=== PATIENT | female | born 1990 | race Native Hawaiian/Other Pacific Islander ===

== ENCOUNTER 2021-07-21 19:03 | Emergency (ER) | payer OTHER, SELFPAY ==
[2021-07-21 19:13] VITALS: BP 132/72; PULSE 98; RESP 18; TEMP 36.8; O2SAT 97; BMI 38.2
[2021-07-21] MEDS: SODIUM CHLORIDE 0.9% 1,000 ML 1000 ML IV ×2 (19:35→22:36)
[2021-07-21] MEDS: ONDANSETRON 4 MG/2 ML INJ IV ×2 (19:35→22:37)
[2021-07-21 19:47] LABS: Alanine Aminotransferase 23 IU/L (<35); Albumin 5.1 g/dL (3.5-5.0); Albumin Globulin Ratio 1.5 (1.0-2.8); Alkaline Phosphatase 102 U/L (38-126); Aspartate Aminotransferase 19 IU/L (14-36); BUN Creatinine Ratio 24.5 (6-22); Bilirubin Total 0.7 mg/dL (0.2-1.3); Blood Urea Nitrogen 12 mg/dL (7-17); Calcium 9.5 mg/dL (8.4-10.2); Carbon Dioxide 14 mmol/L (22-32); Chloride 104 mmol/L (98-107); Estimated Glomerular Filt Rate > 60.0 mL/min (>60); Globulin 3.5 g/dL (1.7-4.1); Glucose 183 mg/dL (70-100); HEMOLYSIS < 15 (0-50); Potassium 4.1 mmol/L (3.4-5.1); Sodium 140 mmol/L (137-145); Total Protein 8.6 g/dL (6.3-8.2)
[2021-07-21 22:23] VITALS: BP 113/68; PULSE 100; RESP 18; O2SAT 95
[2021-07-21 23:14] LABS: Bacteria Urine Few (2-10); Culture Indicated Urine Cult Not Indicated; RBC Urine None Seen (0-5/HPF); Squamous Epithelial Cell Urine 1-5 /HPF (0-5/HPF); WBC Urine 0-1/HPF (0-5/HPF)
--- NOTE | 2021-07-22 00:41 | ED.NAVMDI ---
HPI - Nausea/Vomiting/Diarrhea General Chief complaint: Nausea/Vomiting/Diarrhea Stated complaint: vomiting, Type I diabetic Time Seen by Provider: 07/21/21 22:28 Source: patient Mode of arrival: Ambulatory Limitations: no limitations History of Present Illness HPI Narrative: 31-year-old type 1 diabetic who had her 1st injection of Trulicity on Saturday. That evening she developed some nausea and the next 48 hours she continued to have nausea vomiting today. She had 4 episodes of emesis and has not been able to keep food down. She does not describe fevers, cough, diarrhea, abdominal pain no chest pain no palpitations. She does describe some esophageal discomfort with all of the vomiting. She has been doing an excellent job with controlling her blood sugars and has her monitors to demonstrate that she has consistently been in the 120-200 range. Related Data Previous Rx's Medication Instructions Recorded ondansetron HCl 4 mg tablet 4 mg PO Q6H PRN #20 tab 07/22/21 (Zofran) Allergies Allergy/AdvReac Type Severity Reaction Status Date / Time ibuprofen Allergy Severe Hives Verified 07/21/21 19:13 egg Allergy Verified 07/21/21 19:13 Review of Systems Review of Systems Narrative: Remainder of complete review of systems is otherwise unremarkable except for that included in the HPI. Patient History Medical History (Updated 07/22/21 @ 00:54 by Dahiana Garcia MD) Type 1 diabetes Social History Smoking Status: Never smoker Smoking Status: Never smoker Substance Use Type: does not use Exam Narrative Exam Narrative: General: Healthy appearing, mild distress. Able to give a complete and coherent history. Well-nourished well-developed HEENT: Moist mucous membranes, normal sclera with reactive pupils, Respiratory: Lungs are clear to auscultation, no wheezing no rales no rhonchi. Full and symmetrical air movement Cardiac: Regular rate and rhythm no murmurs no bruits Abdomen: Soft, mild diffuse tenderness without rebound or guarding, normal bowel tones. No flank pain. Skin: Warm and dry, no rashes Neurologic: Grossly neurologically intact with no obvious asymmetries or abnormalities Extremities: No trauma, well perfused Psych: Cooperative, appropriate insight and affect Initial Vital Signs Initial Vital Signs: Vital Signs Temperature 98.2 F 07/21/21 19:13 Pulse Rate 98 H 07/21/21 19:13 Respiratory Rate 18 07/21/21 19:13 Blood Pressure 132/72 07/21/21 19:13 Pulse Oximetry 97 07/21/21 19:13 Course Orders Ordered: ED Orders 07/21/21 19:38 CMP [Comprehensive Metabolic Panel] Stat 07/21/21 22:35 Urine Microscopic Stat Discontinued Medications Sodium Chloride (Normal Saline 0.9%) 1,000 mls @ 1,000 mls/hr IV BOLUS ONE Stop: 07/21/21 20:29 Last Infusion: 07/21/21 21:00 Dose: 0 mls/hr Documented by: Admin: 07/21/21 19:35 Dose: 1,000 mls/hr Documented by: CATHY Sodium Chloride (Normal Saline 0.9%) 1,000 mls @ 1,000 mls/hr IV BOLUS ONE Stop: 07/21/21 23:27 Last Infusion: 07/21/21 23:43 Dose: 0 mls/hr Documented by: Admin: 07/21/21 22:36 Dose: 1,000 mls/hr Documented by: CATHY Ondansetron HCl (Ondansetron 4 Mg/2 Ml Inj) 4 mg IV NOW ONE Stop: 07/21/21 19:31 Last Admin: 07/21/21 19:35 Dose: 4 mg Documented by: CATHY Ondansetron HCl (Ondansetron 4 Mg/2 Ml Inj) 4 mg IV NOW ONE Stop: 07/21/21 22:29 Last Admin: 07/21/21 22:37 Dose: 4 mg Documented by: CATHY Vital Signs Vital signs: Vital Signs - 8 hr 07/21/21 19:13 07/21/21 22:23 Temperature 98.2 F Pulse Rate 98 H 100 H Respiratory Rate 18 18 Blood Pressure 132/72 113/68 Pulse Oximetry 97 95 MDM - Nausea/Vomiting/Diarrhea Lab Data Result diagrams: 07/21/21 19:38 Labs: Lab Results 07/21/21 07/21/21 Range/Units 19:38 22:35 Sodium 140 (137-145) mmol/L Potassium 4.1 (3.4-5.1) mmol/L Chloride 104 (98-107) mmol/L Carbon Dioxide 14 L (22-32) mmol/L BUN 12 (7-17) mg/dL Creatinine 0.49 L (0.52-1.04) mg/dL Estimated GFR > 60.0 (>60) mL/min BUN/Creatinine Ratio 24.5 H (6-22) Glucose 183 H (70-100) mg/dL Calcium 9.5 (8.4-10.2) mg/dL Total Bilirubin 0.7 (0.2-1.3) mg/dL AST 19 (14-36) IU/L ALT 23 (<35) IU/L Alkaline Phosphatase 102 (38-126) U/L Total Protein 8.6 H (6.3-8.2) g/dL Albumin 5.1 H (3.5-5.0) g/dL Globulin 3.5 (1.7-4.1) g/dL Albumin/Globulin Ratio 1.5 (1.0-2.8) Urine RBC None seen (0-5/HPF) Urine WBC 0-1/hpf (0-5/HPF) Ur Squamous Epith Cells 1-5 /hpf (0-5/HPF) Urine Bacteria Few (2-10) H (None) Ur Culture Indicated? Cult not indicated Point of Care Testing Test Results Negative Glucose POC 190 Urine Dip Bedside Urine Glucose 500 mg/dl Bedside Urine Bilirubin - Negative Bedside Urine Ketone +++ 80 Urine Specific [place] 1.030 Bedside Urine Occult Blood - Negative Bedside Urine pH 6.0 Bedside Urine Protein + 30 Bedside Urine Urobilinogen - Negative Bedside Urine Nitrite - Negative Bedside Urine Leukocytes - Negative Esterase MDM Narrative Medical decision making narrative: 31-year-old woman who has had significant nausea and vomiting after her 1st Trulicity injection. I suspect that that is the underlying cause of the vomiting. She had a slightly elevated anion gap on arrival and has had 2 L of fluid blood sugars continue to show consistent 150-200 range and the nausea has subsided and she is able to keep fluids and crackers down. I believe she is safe for home discharge and not showing evidence of DKA or infection or other reason for hospitalization today. Discharge Plan Departure Patient Disposition: Home Clinical Impression: Adverse reaction to drug Qualifiers: Encounter type: initial encounter Qualified Code(s): T50.905A - Adverse effect of unspecified drugs, medicaments and biological substances, initial encounter Nausea & vomiting Qualifiers: Vomiting type: unspecified Vomiting Intractability: non-intractable Qualified Code(s): R11.2 - Nausea with vomiting, unspecified Instructions: DI for Nausea -- Adult Activity Restrictions/Additional Instructions: Thank you for coming in tonight You did an excellent job in controlling your blood sugars during this 3 day episode of vomiting. I do think that the nausea is due to the Trulicity and I would recommend that you do not continue this medication I have given you some Zofran to take home and a prescription for this. This is to help with the nausea. I would recommend a simple bland diet for the next day or 2 until your appetite returns If you have worsening symptoms or are unable to eat or drink you do need to return to the ER. Prescriptions: New ondansetron HCl [Zofran] 4 mg tablet 4 mg PO Q6H PRN (Reason: nausea and vomiting) Qty: 20 RF: 0
[2021-07-22] MEDS: ONDANSETRON 4 MG ODT PREPACK 1 BOTTLE MISC (01:00)
[2021-07-22 01:03] VITALS: BP 114/66; PULSE 87; RESP 16; O2SAT 97
== END 2021-07-22 01:08 | disposition home or self-care (01) ==
PROVIDERS: Emergency Provider Emergency Medicine
DX: R11.2 Nausea with vomiting, unspecified (principal); T38.3X5A Adverse effect of insulin and oral hypoglycemic [antidiabetic] drugs, initial encounter
CPT/HCPCS: 80053; 81003; 81015; 81025; 82962; 96361; 96374; 96375; 96376; 99283; 99284; J2405

== ENCOUNTER 2021-07-23 11:54 | Inpatient (IN) | payer OTHER, SELFPAY ==
[2021-07-23] VITALS (30 sets, daily range): BP systolic 116–148; BP diastolic 57–74; PULSE 105–127; RESP 28–38; TEMP 36.4–37.4; O2SAT 97–100; BMI 37.8
[2021-07-23] MEDS: SODIUM CHLORIDE 0.9% 1,000 ML 1000 ML IV ×2 (12:37→13:55)
[2021-07-23] MEDS: ONDANSETRON 4 MG/2 ML INJ IV ×2 (12:37→20:28)
[2021-07-23 12:48] LABS: Add Manual Diff / Slide Review NO; Basophils Absolute Auto 0 /uL (0-100); Basophils Percent Auto 0.1 % (0-2); Eosinophils Absolute Auto 0 /uL (0-450); Hematocrit 50.8 % (36-46); Hemoglobin 16.5 g/dL (12.0-16.0); Lymphocytes Absolute Auto 1300 /uL (1100-4500); Lymphocytes Percent Auto 8.7 % (25-40); Mean Corpuscular HGB Conc 32.5 % (30-36); Mean Corpuscular Hemoglobin 29.4 PG (26-34); Mean Corpuscular Volume 90.6 fL (80-100); Monocytes Absolute Auto 700 /uL (0-900); Monocytes Percent Auto 4.8 % (3-14); Neutrophils Absolute Auto 12600 /uL (1500-7000); Neutrophils Percent Auto 86.4 % (50-75); Platelet Count 479 X10^3/uL (150-400); Red Cell Distribution Width 13.8 % (11.6-14.8); White Blood Cell Count 14.6 X10^3/uL (4.5-11.0)
[2021-07-23 12:59] LABS: Alanine Aminotransferase 22 IU/L (<35); Albumin 5.2 g/dL (3.5-5.0); Albumin Globulin Ratio 1.3 (1.0-2.8); Alkaline Phosphatase 142 U/L (38-126); Aspartate Aminotransferase 16 IU/L (14-36); BUN Creatinine Ratio 14.3 (6-22); Bilirubin Total 0.4 mg/dL (0.2-1.3); Blood Urea Nitrogen 11 mg/dL (7-17); Calcium 9.4 mg/dL (8.4-10.2); Chloride 109 mmol/L (98-107); Estimated Glomerular Filt Rate > 60.0 mL/min (>60); Glucose 391 mg/dL (70-100); HEMOLYSIS < 15 (0-50); Lactate (Lactic Acid) 1.6 mmol/L (0.7-2.1); Potassium 5.1 mmol/L (3.4-5.1); Sodium 140 mmol/L (137-145); Total Protein 9.2 g/dL (6.3-8.2)
[2021-07-23 13:02] LABS: Ketones (Beta-Hydroxybutyrate) 8.38 mmol/L (<0.27)
[2021-07-23 13:06] LABS: Carbon Dioxide < 5 mmol/L (22-32)
--- NOTE | 2021-07-23 13:17 | ED_ITS ---
HPI - Nausea/Vomiting/Diarrhea General Chief complaint: Nausea/Vomiting/Diarrhea Stated complaint: Type 1 Diabetes/dry heaving/not keeping food down Time Seen by Provider: 07/23/21 12:06 Source: patient and family Mode of arrival: Wheelchair Limitations: language barrier History of Present Illness HPI Narrative: 31-year-old female nonsmoker with history of type 1 diabetes presents feeling worse than a few days ago. She had historically been very well managed on her diabetic regimen including long and short-acting insulins. She was just started on Trulicity injection a few days ago and soon thereafter developed nausea and vomiting. She was seen and evaluated here and had a reassuring evaluation with stable labs, she was given fluids and antiemetics and was able to go home. Since then she has continued to vomit and now feels dizzy and weak and has had of increasing shortness of breath. Her sugars been running in the 300s at home. Related Data Previous Rx's Medication Instructions Recorded ondansetron HCl 4 mg tablet 4 mg PO Q6H PRN #20 tab 07/22/21 (Zofran) Allergies Allergy/AdvReac Type Severity Reaction Status Date / Time ibuprofen Allergy Severe Hives Verified 07/21/21 19:13 egg Allergy Verified 07/21/21 19:13 Review of Systems Review of Systems Narrative: GENERAL: See HPI HEENT: Denies sinus pain, ear pain, sore throat, difficulty swallowing, dizziness. RESPIRATORY: See HPI CARDIOVASCULAR: Denies chest pain, palpitations, orthopnea, edema, GASTROINTESTINAL: See HPI : Denies dysuria, frequency, incontinence, hematuria, urinary retention. MUSCULOSKELETAL: denies weakness, joint pain, or bony pain SKIN: Denies rash, skin lesions, or other NEUROLOGIC: Denies weakness, headache, numbness, change in speech, confusion, seizures, incoordination. PSYCHIATRIC: No concerning psychosocial issues. 12 point review of systems is negative except for those stated above Patient History Medical History Type 1 diabetes Social History Smoking Status: Never smoker Smoking Status: Never smoker Substance Use Type: does not use Exam Narrative Exam Narrative: GENERAL: [31 year old patient appears stated age. Well-developed patient, in moderate distress. Obviously ill, rapid shallow breathing, dry mu cous membranes HEAD: Atraumatic. Normocephalic. EYES: Pupils equal round and reactive. Extraocular motions intact. No scleral icterus. No injection or drainage. ENT: Dry mucous membranes Nose without bleeding, purulent drainage. Throat without erythema, tonsillar hypertrophy or exudate. Airway patent. NECK: Trachea midline. Non tender CARDIOVASCULAR: Regular rate and rhythm without murmurs, gallops, or rubs. RESPIRATORY: Clear to auscultation. Breath sounds equal bilaterally. No wheezes, rales, or rhonchi. GASTROINTESTINAL: Abdomen soft, non-tender, nondistended. EXTREMITIES: No edema or joint tenderness. BACK: Nontender without deformity or crepitance. No flank tenderness. NEURO: AOx3. SKIN: No rash or erythema of visible areas Initial Vital Signs Initial Vital Signs: Vital Signs Temperature 97.6 F 07/23/21 12:33 Pulse Rate 123 H 07/23/21 12:33 Respiratory Rate 32 H 07/23/21 12:33 Blood Pressure 116/68 07/23/21 12:33 Pulse Oximetry 97 07/23/21 12:33 Course Orders Ordered: ED Orders 07/23/21 12:08 Venous Blood Gas Stat EKG-12 Lead Stat 07/23/21 12:32 Complete Blood Count AUTO DIFF Stat Comprehensive Metabolic Panel Stat Ketones (Beta-Hydroxybutyrate) Stat Lactate (Lactic Acid) Stat Procalcitonin Stat Troponin I Stat 07/23/21 13:00 Arterial Blood Gas Stat 07/23/21 13:58 COVID19 - ADMIT (SEISMOLOGY TECHNICAL OFFICER swab/PCR) Stat 07/23/21 14:04 XR chest 1V Stat 07/23/21 14:10 Blood Culture Stat Urinalysis and Microscopic Stat Urine Culture Stat 07/24/21 05:00 Hemoglobin A1C% w Est Avg Glu Routine INSULIN DRIP PREMIX (Myxredlin Drip Premix) 100 unit in 100 mls @ 6 mls/hr IV TITRATE CORAZON; Protocol Last Admin: 07/23/21 13:50 Dose: 6 ml/hr, 6 mls/hr Documented by: RAMILA Cosigned by: CSIEDLE Ceftriaxone Sodium 1,000 mg/ (Sodium Chloride) 100 mls @ 200 mls/hr IV DAILY CORAZON Discontinued Medications Sodium Chloride (Normal Saline 0.9%) 1,000 mls @ 1,000 mls/hr IV BOLUS ONE Stop: 07/23/21 13:06 Last Infusion: 07/23/21 13:56 Dose: 0 mls/hr Documented by: Admin: 07/23/21 12:37 Dose: 1,000 mls/hr Documented by: BRANDON Sodium Chloride (Normal Saline 0.9%) 1,000 mls @ 1,000 mls/hr IV BOLUS ONE Stop: 07/23/21 14:45 Last Admin: 07/23/21 13:55 Dose: 1,000 mls/hr Documented by: RAMILA Ceftriaxone Sodium 1,000 mg/ (Sodium Chloride) 100 mls @ 200 mls/hr IV NOW ONE Stop: 07/23/21 14:48 Last Admin: 07/23/21 15:18 Dose: 200 mls/hr Documented by: RAMILA Ondansetron HCl (Ondansetron 4 Mg/2 Ml Inj) 4 mg IV NOW ONE Stop: 07/23/21 12:08 Last Admin: 07/23/21 12:37 Dose: 4 mg Documented by: BRANDON Vital Signs Vital signs: Vital Signs - 8 hr 07/23/21 12:33 07/23/21 13:19 07/23/21 13:30 Temperature 97.6 F Pulse Rate 123 H 109 H 109 H Respiratory Rate 32 H 34 H 34 H Blood Pressure 116/68 140/68 Pulse Oximetry 97 100 100 07/23/21 14:00 07/23/21 14:06 Temperature Pulse Rate 117 H 114 H Respiratory Rate 36 H 31 H Blood Pressure 141/66 H Pulse Oximetry 100 100 MDM - Nausea/Vomiting/Diarrhea Lab Data Result diagrams: 07/23/21 12:32 07/23/21 12:32 Labs: Lab Results 07/23/21 07/23/21 07/23/21 Range/Units 12:32 12:32 12:32 WBC 14.6 H (4.5-11.0) X10^3/uL RBC 5.60 H (4.0-5.2) X10^6/uL Hgb 16.5 H (12.0-16.0) g/dL Hct 50.8 H (36-46) % MCV 90.6 (80-100) fL MCH 29.4 (26-34) PG MCHC 32.5 (30-36) % RDW 13.8 (11.6-14.8) % Plt Count 479 H (150-400) X10^3/uL Neut % (Auto) 86.4 H (50-75) % Lymph % (Auto) 8.7 L (25-40) % [place] % (Auto) 4.8 (3-14) % Eos % (Auto) 0.0 L (2-4) % Baso % (Auto) 0.1 (0-2) % Neut # (Auto) 41331 H (3006-0448) /uL Lymph # (Auto) 1300 (0031-5684) /uL [place] # (Auto) 700 (0-900) /uL Eos # (Auto) 0 (0-450) /uL Baso # (Auto) 0 (0-100) /uL ABG pH (7.35-7.45) ABG pCO2 (35-45) mmHg ABG pO2 (80-100) mmHg ABG HCO3 (22-26) mmol/L ABG Total CO2 (21-31) mmol/L ABG O2 Saturation (95-100) % ABG Base Excess (-2-2) mmol/L FiO2 Sodium 140 (137-145) mmol/L Potassium 5.1 (3.4-5.1) mmol/L Chloride 109 H (98-107) mmol/L Carbon Dioxide < 5 L* (22-32) mmol/L BUN 11 (7-17) mg/dL Creatinine 0.77 (0.52-1.04) mg/dL Estimated GFR > 60.0 (>60) mL/min BUN/Creatinine Ratio 14.3 (6-22) Glucose 391 H D (70-100) mg/dL Lactate 1.6 (0.7-2.1) mmol/L Calcium 9.4 (8.4-10.2) mg/dL Total Bilirubin 0.4 (0.2-1.3) mg/dL AST 16 (14-36) IU/L ALT 22 (<35) IU/L Alkaline Phosphatase 142 H (38-126) U/L Total Protein 9.2 H (6.3-8.2) g/dL Albumin 5.2 H (3.5-5.0) g/dL Globulin 4.0 (1.7-4.1) g/dL Albumin/Globulin Ratio 1.3 (1.0-2.8) Procalcitonin 0.09 (<0.5) ng/mL Urine Color Urine Appearance Urine pH (4.5-8.0) Ur Specific [place] (1.000-1.035) Urine Protein (Negative) Urine Glucose (UA) (Negative) g/dL Urine Ketones (NEGATIVE) Urine Occult Blood (Negative) Urine Nitrate (Negative) Urine Bilirubin (NEGATIVE) Urine Urobilinogen (0.2) E.U./dL Ur Leukocyte Esterase (NEGATIVE) Urine RBC (0-5/HPF) Urine WBC (0-5/HPF) Ur Squamous Epith Cells (0-5/HPF) Urine Bacteria (None) Hyaline Casts (None) Ur Culture Indicated? Ketones 8.38 H (<0.27) mmol/L 07/23/21 07/23/21 Range/Units 13:00 14:10 WBC (4.5-11.0) X10^3/uL RBC (4.0-5.2) X10^6/uL Hgb (12.0-16.0) g/dL Hct (36-46) % MCV (80-100) fL MCH (26-34) PG MCHC (30-36) % RDW (11.6-14.8) % Plt Count (150-400) X10^3/uL Neut % (Auto) (50-75) % Lymph % (Auto) (25-40) % [place] % (Auto) (3-14) % Eos % (Auto) (2-4) % Baso % (Auto) (0-2) % Neut # (Auto) (6462-7312) /uL Lymph # (Auto) (6197-6040) /uL [place] # (Auto) (0-900) /uL Eos # (Auto) (0-450) /uL Baso # (Auto) (0-100) /uL ABG pH 7.04 L* (7.35-7.45) ABG pCO2 9.1 L* (35-45) mmHg ABG pO2 124 H (80-100) mmHg ABG HCO3 3 L (22-26) mmol/L ABG Total CO2 < 5 L (21-31) mmol/L ABG O2 Saturation 97 (95-100) % ABG Base Excess -28.0 L (-2-2) mmol/L FiO2 21 Sodium (137-145) mmol/L Potassium (3.4-5.1) mmol/L Chloride (98-107) mmol/L Carbon Dioxide (22-32) mmol/L BUN (7-17) mg/dL Creatinine (0.52-1.04) mg/dL Estimated GFR (>60) mL/min BUN/Creatinine Ratio (6-22) Glucose (70-100) mg/dL Lactate (0.7-2.1) mmol/L Calcium (8.4-10.2) mg/dL Total Bilirubin (0.2-1.3) mg/dL AST (14-36) IU/L ALT (<35) IU/L Alkaline Phosphatase (38-126) U/L Total Protein (6.3-8.2) g/dL Albumin (3.5-5.0) g/dL Globulin (1.7-4.1) g/dL Albumin/Globulin Ratio (1.0-2.8) Procalcitonin (<0.5) ng/mL Urine Color Yellow Urine Appearance Clear Urine pH 5.0 (4.5-8.0) Ur Specific [place] 1.020 (1.000-1.035) Urine Protein 1+ H (Negative) Urine Glucose (UA) 1+ H (Negative) g/dL Urine Ketones 3+ H (NEGATIVE) Urine Occult Blood 1+ H (Negative) Urine Nitrate Negative (Negative) Urine Bilirubin Negative (NEGATIVE) Urine Urobilinogen 0.2 (0.2) E.U./dL Ur Leukocyte Esterase Negative (NEGATIVE) Urine RBC 0-1/hpf (0-5/HPF) Urine WBC 5-10/hpf H (0-5/HPF) Ur Squamous Epith Cells 0-1 /hpf (0-5/HPF) Urine Bacteria Few (2-10) H (None) Hyaline Casts 5-10/lpf (None) Ur Culture Indicated? Specimen cultured Ketones (<0.27) mmol/L Point of Care Testing Test Results Negative Glucose POC 250 Urine Dip Bedside Urine Glucose 500 mg/dl Bedside Urine Bilirubin - Negative Bedside Urine Ketone +++ 80 Urine Specific [place] 1.030 Bedside Urine Occult Blood + Bedside Urine pH 6.0 Bedside Urine Protein + 30 Bedside Urine Urobilinogen - Negative Bedside Urine Nitrite - Negative Bedside Urine Leukocytes - Negative Esterase Imaging Data Chest x-ray: Radiologist's Impression: Teresa Crump??31??F??1990 ? Allergy/Adv: ibuprofen, egg Close Chest X-Ray (Signed) Kyrie Faulknersse - 07/23/21 Launch?[address] [address] XRay Report Signed Patient: Teresa Crump MR#: [id number] : 1990 Acct:[id number] Age/Sex: 31 / F Date of Service: 07/23/21 Loc: 90D-1 Accession Number: [id number] ?? Procedure: XR chest 1V Ordering Provider: Marlo Sow D.O. PROCEDURE:? XR CHEST 1V ? INDICATIONS:? Short of breath ? TECHNIQUE:? One view of the chest was acquired.? ? COMPARISON:? None. ? FINDINGS:? ? Surgical changes and devices:? None.? ? Lungs and pleura:? Low lung volumes are noted. This causes a crowded appearance to the lung markings and limits evaluation.? Minimal bilateral interstitial infiltrates are seen.? No focal areas of consolidation can be seen. No large pneumothorax or large pleural effusions are seen.? ? Mediastinum:? Mediastinal contours appear normal.? Heart size is normal.? ? Bones and chest wall:? No suspicious bony lesions.? Overlying soft tissues appear unremarkable.? ? ? IMPRESSION:? Low lung volumes with minimal interstitial infiltrates.? Please consider artifact versus pulmonary edema versus atypical infiltrate (including COVID pneumonia). ? If clinically appropriate, a short-term followup chest series (with PA and lateral views) performed in deep inspiration is suggested for further evaluation.? Dictated by: Torsten Faulkner M.D. on 07/23/2021 at 14:08 ? ? Approved by: Torsten Faulkner M.D. on 07/23/2021 at 14:08 ? Discharge Plan Departure Patient Disposition: Admitted As Inpatient Clinical Impression: DKA, type 1 Qualifiers: Diabetes mellitus complication detail: without coma Qualified Code(s): E10.10 - Type 1 diabetes mellitus with ketoacidosis without coma Admit Date/Time: 07/23/21 15:00 Admit Provider: Ben Garcia
[2021-07-23 13:18] LABS: Procalcitonin 0.09 ng/mL (<0.5)
[2021-07-23 13:27] LABS: pH ABG 7.04 (7.35-7.45)
[2021-07-23 13:28] LABS: HCO3 ABG 3 mmol/L (22-26); Oxygen Saturation ABG 97 % (95-100); PCO2 ABG 9.1 mmHg (35-45); PO2 ABG 124 mmHg (80-100); TCO2 ABG < 5 mmol/L (21-31)
[2021-07-23 13:29] LABS: Fractionated Inspired Oxygen 21
[2021-07-23] MEDS: INSULIN DRIP PREMIX 100 UNIT/100 ML PLAST..BAG 6 UNIT IV (13:50)
--- NOTE | 2021-07-23 14:04 | DI.RAD.S_ITS ---
PROCEDURE: XR CHEST 1V INDICATIONS: Short of breath TECHNIQUE: One view of the chest was acquired. COMPARISON: None. FINDINGS: Surgical changes and devices: None. Lungs and pleura: Low lung volumes are noted. This causes a crowded appearance to the lung markings and limits evaluation. Minimal bilateral interstitial infiltrates are seen. No focal areas of consolidation can be seen. No large pneumothorax or large pleural effusions are seen. Mediastinum: Mediastinal contours appear normal. Heart size is normal. Bones and chest wall: No suspicious bony lesions. Overlying soft tissues appear unremarkable. IMPRESSION: Low lung volumes with minimal interstitial infiltrates. Please consider artifact versus pulmonary edema versus atypical infiltrate (including COVID pneumonia). If clinically appropriate, a short-term followup chest series (with PA and lateral views) performed in deep inspiration is suggested for further evaluation. Dictated by: Torsten Faulkner M.D. on 07/23/2021 at 14:08 Approved by: Torsten Faulkner M.D. on 07/23/2021 at 14:08
[2021-07-23 14:21] LABS: Appearance Urine UA CLEAR; Bilirubin Urine UA NEGATIVE (NEGATIVE); Color Urine UA YELLOW; Glucose Urine UA 1+ g/dL (Negative); Ketones Urine UA 3+ (NEGATIVE); Leukocyte Esterase Urine UA NEGATIVE (NEGATIVE); Nitrite Urine UA NEGATIVE (Negative); Occult Blood Urine UA 1+ (Negative); Protein Urine UA 1+ (Negative); Urobilinogen Urine UA 0.2 E.U./dL (0.2)
[2021-07-23 14:36] LABS: Bacteria Urine Few (2-10); Culture Indicated Urine Specimen Cultured; Hyaline Casts Urine 5-10/LPF; RBC Urine 0-1/HPF (0-5/HPF); Squamous Epithelial Cell Urine 0-1 /HPF (0-5/HPF); WBC Urine 5-10/HPF (0-5/HPF)
[2021-07-23 15:15] LABS: Troponin I < 0.012 ng/mL (0.01-0.034)
[2021-07-23] MEDS: cefTRIAXone 1,000 MG in SODIUM CHLORIDE 0.9% 100 ML 200 ML IV (15:18)
[2021-07-23 15:44] LABS: COVID19 - ADMIT (NP swab/PCR) Negative (Negative)
[2021-07-23] MEDS: DEXTROSE 5%-0.45% NS 1,000 ML 500 ML IV (16:42)
[2021-07-23 17:08] LABS: BUN Creatinine Ratio 16.4 (6-22); Blood Urea Nitrogen 10 mg/dL (7-17); Calcium 8.5 mg/dL (8.4-10.2); Chloride 117 mmol/L (98-107); Estimated Glomerular Filt Rate > 60.0 mL/min (>60); Glucose 135 mg/dL (70-100); HEMOLYSIS 40 (0-50); Potassium 4.4 mmol/L (3.4-5.1); Sodium 143 mmol/L (137-145)
[2021-07-23 17:12] LABS: Carbon Dioxide < 5 mmol/L (22-32)
[2021-07-23] MEDS: PANTOPRAZOLE 40 MG VIAL IV (17:26)
[2021-07-23 17:43] LABS: HCO3 ABG 3 mmol/L (22-26); Oxygen Saturation ABG 98 % (95-100); PCO2 ABG 9.9 mmHg (35-45); PO2 ABG 129 mmHg (80-100); TCO2 ABG < 5 mmol/L (21-31)
[2021-07-23 17:44] LABS: Fractionated Inspired Oxygen 21
--- NOTE | 2021-07-23 18:26 | P.HP_ITS ---
History of Present Illness History of Present Illness Chief complaint: Type 1 Diabetes/dry heaving/not keeping food down Narrative: Ms. Crump is a 31W with PMH Type 1 Diabetes, thyroiditis who presents to the hospital with nausea, vomiting, abdominal pain, dehydration. She states she has had a long time of being unable to control her blood sugars. She has had consistenly high a1c, last was 11. She is on insulin, ipraglifozin with still poor control with blood sugars in the 200s. She was then started on trul icity on Saturday and received her first injection. That same day she developed nausea and vomiting. She has been unable to keep down her oral medications. She stopped taking her short acting insulin. She has continued to have nausea and vomiting that has not resolved. She developed abdominal pain after vomiting multiple times. She developed a burning chest sensation. More recently she developed shortness of breath. She presented to the hospital with these symptoms two days ago. She had an anion gap then, and blood sugars in the 150s-200s. She was given IV fluids and was discharged as per note she was feeling improved. However once going home she continued to feel poorly she has had some urinary frequency and discomfort. In the ED, workup was done she was noted to be afebrile, tachycardic in the 120s, respiratory rate 30s. Labs notable for WBC 14.6, hgb 16.5, plts 479. Labs notable for WBC 14.6, Hgb 16.5, plts 479. pH 7.04, pCO2 9.1, hco3 3, pco2 < 5. Na 140, k 5.1, cO2 <5. Glucose 391. Ketones 8.38. UA with 5-10 WBC, 2-10 bacteria. COVID negative. Family history: Father Type 2 Diabetes Patient History Medical History Type 1 diabetes Family & Social History Social History: household members spouse Prior Living Arrangements House Safety & Behavioral: Feels Safe in Current Yes Environment Been Physically Hurt or No Threatened By a Person Suicidal Ideation Description None Suicide Plan Description No Plan Tobacco & Substance use: Smoking Status Never smoker alcohol intake never Substance Use Type does not use Meds Home Medications and Allergies Home Medications Medication Instructions Recorded Confirmed Type insulin glargine 100 unit/mL (3 38 unit SUBCUT QAM 07/23/21 07/23/21 History mL) subcutaneous pen (Lantus Solostar U-100 Insulin) insulin regular hum U-500 conc 20 unit SUBCUT QACHS 07/23/21 07/23/21 History (Humulin R U-500 (Conc) Insulin Kwikpen) Allergies Allergy/AdvReac Type Severity Reaction Status Date / Time ibuprofen Allergy Severe Hives Verified 07/21/21 19:13 egg Allergy Verified 07/21/21 19:13 Review of Systems Review of Systems Narrative: 14 systems reviewed and negative aside from what is noted in HPI Exam Vital Signs (past 8 hours): - 07/23/21 12:33 07/23/21 13:19 07/23/21 13:30 Temperature 97.6 F Pulse Rate 123 H 109 H 109 H Respiratory Rate 32 H 34 H 34 H Blood Pressure 116/68 140/68 Pulse Oximetry 97 100 100 07/23/21 14:00 07/23/21 14:06 07/23/21 14:30 Temperature Pulse Rate 117 H 114 H 116 H Respiratory Rate 36 H 31 H 34 H Blood Pressure 141/66 H 143/71 H Pulse Oximetry 100 100 100 07/23/21 15:00 07/23/21 16:15 07/23/21 17:15 Temperature 98.4 F 99.2 F Pulse Rate 120 H 118 H 108 H Respiratory Rate 28 H 32 H 28 H Blood Pressure 148/74 H 128/73 136/65 Pulse Oximetry 99 99 100 Oxygen Delivery Method Room Air Oxygen Flow Rate 0 Narrative Exam Narrative: GEN: fatigued, moderate distress HEENT: PERRL, dry mucous membranes NECK: trachea midline, no JVD CV: tachycardic, no murmurs PULM: clear bilaterally, no wheezes, rhonchi, rales, tachypneic ABD: soft, nontender, nondistended, no organomegaly, normal bowel sounds EXT: warm and well perfused with no edema NEURO: awake and alert and oriented, slightly lethargic PSYCH: pleasant, cooperative Objective Labs Result Diagrams: 07/23/21 12:32 07/23/21 18:55 Labs: Laboratory Results - last 24 hr 07/23/21 07/23/21 07/23/21 12:32 12:32 12:32 WBC 14.6 H RBC 5.60 H Hgb 16.5 H Hct 50.8 H MCV 90.6 MCH 29.4 MCHC 32.5 RDW 13.8 Plt Count 479 H Neut % (Auto) 86.4 H Lymph % (Auto) 8.7 L [place] % (Auto) 4.8 Eos % (Auto) 0.0 L Baso % (Auto) 0.1 Neut # (Auto) 96168 H Lymph # (Auto) 1300 [place] # (Auto) 700 Eos # (Auto) 0 Baso # (Auto) 0 ABG pH ABG pCO2 ABG pO2 ABG HCO3 ABG Total CO2 ABG O2 Saturation ABG Base Excess FiO2 Sodium 140 Potassium 5.1 Chloride 109 H Carbon Dioxide < 5 L* BUN 11 Creatinine 0.77 Estimated GFR > 60.0 BUN/Creatinine Ratio 14.3 Glucose 391 H D Lactate 1.6 Calcium 9.4 Total Bilirubin 0.4 AST 16 ALT 22 Alkaline Phosphatase 142 H Troponin I Total Protein 9.2 H Albumin 5.2 H Globulin 4.0 Albumin/Globulin Ratio 1.3 Procalcitonin 0.09 Urine Color Urine Appearance Urine pH Ur Specific [place] Urine Protein Urine Glucose (UA) Urine Ketones Urine Occult Blood Urine Nitrate Urine Bilirubin Urine Urobilinogen Ur Leukocyte Esterase Urine RBC Urine WBC Ur Squamous Epith Cells Urine Bacteria Hyaline Casts Ur Culture Indicated? Ketones 8.38 H SARS-CoV-2 (PCR) 07/23/21 07/23/21 07/23/21 12:32 13:00 13:58 WBC RBC Hgb Hct MCV MCH MCHC RDW Plt Count Neut % (Auto) Lymph % (Auto) [place] % (Auto) Eos % (Auto) Baso % (Auto) Neut # (Auto) Lymph # (Auto) [place] # (Auto) Eos # (Auto) Baso # (Auto) ABG pH 7.04 L* ABG pCO2 9.1 L* ABG pO2 124 H ABG HCO3 3 L ABG Total CO2 < 5 L ABG O2 Saturation 97 ABG Base Excess -28.0 L FiO2 21 Sodium Potassium Chloride Carbon Dioxide BUN Creatinine Estimated GFR BUN/Creatinine Ratio Glucose Lactate Calcium Total Bilirubin AST ALT Alkaline Phosphatase Troponin I < 0.012 Total Protein Albumin Globulin Albumin/Globulin Ratio Procalcitonin Urine Color Urine Appearance Urine pH Ur Specific [place] Urine Protein Urine Glucose (UA) Urine Ketones Urine Occult Blood Urine Nitrate Urine Bilirubin Urine Urobilinogen Ur Leukocyte Esterase Urine RBC Urine WBC Ur Squamous Epith Cells Urine Bacteria Hyaline Casts Ur Culture Indicated? Ketones SARS-CoV-2 (PCR) Negative 07/23/21 07/23/21 07/23/21 14:10 16:40 17:05 WBC RBC Hgb Hct MCV MCH MCHC RDW Plt Count Neut % (Auto) Lymph % (Auto) [place] % (Auto) Eos % (Auto) Baso % (Auto) Neut # (Auto) Lymph # (Auto) [place] # (Auto) Eos # (Auto) Baso # (Auto) ABG pH 7.10 L* ABG pCO2 9.9 L* ABG pO2 129 H ABG HCO3 3 L ABG Total CO2 < 5 L ABG O2 Saturation 98 ABG Base Excess -27.0 L FiO2 21 Sodium 143 Potassium 4.4 Chloride 117 H Carbon Dioxide < 5 L* BUN 10 Creatinine 0.61 Estimated GFR > 60.0 BUN/Creatinine Ratio 16.4 Glucose 135 H D Lactate Calcium 8.5 Total Bilirubin AST ALT Alkaline Phosphatase Troponin I Total Protein Albumin Globulin Albumin/Globulin Ratio Procalcitonin Urine Color Yellow Urine Appearance Clear Urine pH 5.0 Ur Specific [place] 1.020 Urine Protein 1+ H Urine Glucose (UA) 1+ H Urine Ketones 3+ H Urine Occult Blood 1+ H Urine Nitrate Negative Urine Bilirubin Negative Urine Urobilinogen 0.2 Ur Leukocyte Esterase Negative Urine RBC 0-1/hpf Urine WBC 5-10/hpf H Ur Squamous Epith Cells 0-1 /hpf Urine Bacteria Few (2-10) H Hyaline Casts 5-10/lpf Ur Culture Indicated? Specimen cultured Ketones SARS-CoV-2 (PCR) Assessment & Plan Assessment & Plan narrative: Ms. Crump is a 31W with PMH Type 1 Diabetes, coming in the nausea, vomiting, abdominal pain found to be in DKA. 1. DKA with Type 1 Diabetes poorly controlled -patient states home dose of insulin 38U daily, and 20U at each meal, but has poorly controlled blood sugar -hold sglt2 inhibitor -exacerbation possibly from adverse effect of trulicity causing nausea and vomiting, and contributing from UTI, chest xray with questionable infiltrates vs low lung volume artifact -send respiratory panel, covid negative -troponin negative -started insulin gtt -got IV fluid boluses in ED -blood sugar improved to <250, start on d51/2NS -appreciate factory worker recommendations -for now q4hr bmp and vbg -npo until gap closes and symptoms improve 2. UTI -UA positive -started ceftriaxone -follow up culture 3. Thyroiditis -patient says she's not on any medications -check TSH CODE: Full Proxy: Thomas [place], spouse I have utilized all available resources to review update, and confirm his current medications Time Spent With Patient Critical Care time: I spent a total of [] minutes of critical care time on this patient's care today; this time is exclusive of procedural time. Quality MIPS - Admit I confirm the patient?s Advance Care Plan is present, Code status is documented, Surrogate decision maker is in patient?s record [If Yes, STOP here]: Yes
[2021-07-23 19:14] LABS: BUN Creatinine Ratio 15.3 (6-22); Blood Urea Nitrogen 9 mg/dL (7-17); Calcium 9.1 mg/dL (8.4-10.2); Chloride 115 mmol/L (98-107); Estimated Glomerular Filt Rate > 60.0 mL/min (>60); Glucose 172 mg/dL (70-100); HEMOLYSIS 29 (0-50); Potassium 4.5 mmol/L (3.4-5.1); Sodium 143 mmol/L (137-145)
[2021-07-23 19:16] LABS: TSH w/ Reflex to FT4 0.38 uIU/mL (0.47-4.68)
[2021-07-23 19:17] LABS: Carbon Dioxide < 5 mmol/L (22-32)
[2021-07-23 19:42] LABS: Free T4, Direct Thyroxine 1.16 ng/dL (0.78-2.19)
--- NOTE | 2021-07-23 20:01 | P.TELICUCN_ITS ---
History of Present Illness Consult details Chief complaint: Type 1 Diabetes/dry heaving/not keeping food down :: This patient was seen via real time interactive two-way audiovisual telecommunication, patient's RN was present fpr discussion. Narrative: In brief, this is a 31 y/o woman w/ known history of IDDM who endorses feeling unwell since this past Saturday. Pertinent symptoms include nausea, vomiting, chills and overall malaise. Pertinent negatives include pelvic discomfort, dysuria or fevers. Patient hyperglycemic in ED, tachypneic. ABG reveled metabolic acidosis with pH 7.04, pCO2 9. Patient was started on insulin gtt protocol and admitted to MICU under hospitalist service. [facility] Medical History Type 1 diabetes Social History household members: spouse Smoking Status: Never smoker alcohol intake: never Current Medications Current Medications Medications: Home Medications insulin glargine 100 unit/mL (3 mL) subcutaneous pen (Lantus Solostar U-100 Insulin) 38 unit SUBCUT QAM 07/23/21 [History Confirmed 07/23/21] insulin regular hum U-500 conc (Humulin R U-500 (Conc) Insulin Kwikpen) 20 unit SUBCUT QAS 07/23/21 [History Confirmed 07/23/21] Visit Medications (administered) Generic Name Dose Route Start Last Admin Trade Name Freq PRN Reason Stop Dose Admin INSULIN DRIP PREMIX 100 unit in 100 mls @ 6 mls/hr 07/23/21 13:30 07/23/21 19:00 Myxredlin Drip Premix IV 1.8 ml/hr TITRATE CORAZON 1.8 mls/hr Titration Protocol Sodium Chloride 1,000 mls @ 500 mls/hr 07/23/21 15:43 07/23/21 16:39 Normal Saline 0.9% IV Not Given CONT CORAZON Dextrose/Sodium Chloride 1,000 mls @ 500 mls/hr 07/23/21 16:45 07/23/21 17:15 Dextrose 5%-0.45% Ns IV 133 mls/hr CONT CORAZON Infusion Pantoprazole Sodium 40 mg 07/23/21 17:00 07/23/21 17:26 Pantoprazole 40 Mg Vial IV 40 mg DAILY@1700 CORAZON Administration Exam Vital Signs (past 8 hours): - 07/23/21 12:33 07/23/21 13:19 07/23/21 13:30 Temperature 97.6 F Pulse Rate 123 H 109 H 109 H Respiratory Rate 32 H 34 H 34 H Blood Pressure 116/68 140/68 Pulse Oximetry 97 100 100 07/23/21 14:00 07/23/21 14:06 07/23/21 14:30 Temperature Pulse Rate 117 H 114 H 116 H Respiratory Rate 36 H 31 H 34 H Blood Pressure 141/66 H 143/71 H Pulse Oximetry 100 100 100 07/23/21 15:00 07/23/21 15:30 07/23/21 15:58 Temperature Pulse Rate 120 H 116 H 121 H Respiratory Rate 28 H 38 H 30 H Blood Pressure 148/74 H Pulse Oximetry 99 100 99 07/23/21 16:10 07/23/21 16:11 07/23/21 16:15 Temperature 98.4 F Pulse Rate 124 H 118 H Respiratory Rate 31 H 32 H Blood Pressure 128/73 128/73 Pulse Oximetry 99 07/23/21 16:30 07/23/21 17:00 07/23/21 17:15 Temperature 99.2 F Pulse Rate 127 H 111 H 108 H Respiratory Rate 35 H 31 H 28 H Blood Pressure 136/65 Pulse Oximetry 100 100 07/23/21 17:19 07/23/21 17:30 07/23/21 18:00 Temperature Pulse Rate 108 H 109 H 105 H Respiratory Rate 35 H 37 H 34 H Blood Pressure 136/65 Pulse Oximetry 100 100 100 07/23/21 18:15 07/23/21 18:16 07/23/21 18:30 Temperature 99.4 F Pulse Rate 112 H 112 H 112 H Respiratory Rate 31 H 30 H 31 H Blood Pressure 138/70 138/70 Pulse Oximetry 100 99 99 07/23/21 19:00 07/23/21 19:15 Temperature 99.2 F Pulse Rate 109 H 112 H Respiratory Rate 35 H 30 H Blood Pressure 139/64 Pulse Oximetry 99 99 Oxygen Delivery Method Room Air Oxygen Flow Rate 0 Const General: cooperative and other (Tachypneic otherwise NAD, not utilizing accessory muscles of respiration) Objective Labs Result Diagrams: 07/23/21 12:32 07/23/21 18:55 Labs: Laboratory Results - last 24 hr 07/23/21 07/23/21 07/23/21 12:32 12:32 12:32 WBC 14.6 H RBC 5.60 H Hgb 16.5 H Hct 50.8 H MCV 90.6 MCH 29.4 MCHC 32.5 RDW 13.8 Plt Count 479 H Neut % (Auto) 86.4 H Lymph % (Auto) 8.7 L [place] % (Auto) 4.8 Eos % (Auto) 0.0 L Baso % (Auto) 0.1 Neut # (Auto) 84721 H Lymph # (Auto) 1300 [place] # (Auto) 700 Eos # (Auto) 0 Baso # (Auto) 0 ABG pH ABG pCO2 ABG pO2 ABG HCO3 ABG Total CO2 ABG O2 Saturation ABG Base Excess FiO2 Sodium 140 Potassium 5.1 Chloride 109 H Carbon Dioxide < 5 L* BUN 11 Creatinine 0.77 Estimated GFR > 60.0 BUN/Creatinine Ratio 14.3 Glucose 391 H D Lactate 1.6 Calcium 9.4 Total Bilirubin 0.4 AST 16 ALT 22 Alkaline Phosphatase 142 H Troponin I Total Protein 9.2 H Albumin 5.2 H Globulin 4.0 Albumin/Globulin Ratio 1.3 Procalcitonin 0.09 TSH Free T4 Urine Color Urine Appearance Urine pH Ur Specific [place] Urine Protein Urine Glucose (UA) Urine Ketones Urine Occult Blood Urine Nitrate Urine Bilirubin Urine Urobilinogen Ur Leukocyte Esterase Urine RBC Urine WBC Ur Squamous Epith Cells Urine Bacteria Hyaline Casts Ur Culture Indicated? Ketones 8.38 H SARS-CoV-2 (PCR) 07/23/21 07/23/21 07/23/21 12:32 12:32 13:00 WBC RBC Hgb Hct MCV MCH MCHC RDW Plt Count Neut % (Auto) Lymph % (Auto) [place] % (Auto) Eos % (Auto) Baso % (Auto) Neut # (Auto) Lymph # (Auto) [place] # (Auto) Eos # (Auto) Baso # (Auto) ABG pH 7.04 L* ABG pCO2 9.1 L* ABG pO2 124 H ABG HCO3 3 L ABG Total CO2 < 5 L ABG O2 Saturation 97 ABG Base Excess -28.0 L FiO2 21 Sodium Potassium Chloride Carbon Dioxide BUN Creatinine Estimated GFR BUN/Creatinine Ratio Glucose Lactate Calcium Total Bilirubin AST ALT Alkaline Phosphatase Troponin I < 0.012 Total Protein Albumin Globulin Albumin/Globulin Ratio Procalcitonin TSH 0.38 L Free T4 1.16 Urine Color Urine Appearance Urine pH Ur Specific [place] Urine Protein Urine Glucose (UA) Urine Ketones Urine Occult Blood Urine Nitrate Urine Bilirubin Urine Urobilinogen Ur Leukocyte Esterase Urine RBC Urine WBC Ur Squamous Epith Cells Urine Bacteria Hyaline Casts Ur Culture Indicated? Ketones SARS-CoV-2 (PCR) 07/23/21 07/23/21 07/23/21 13:58 14:10 16:40 WBC RBC Hgb Hct MCV MCH MCHC RDW Plt Count Neut % (Auto) Lymph % (Auto) [place] % (Auto) Eos % (Auto) Baso % (Auto) Neut # (Auto) Lymph # (Auto) [place] # (Auto) Eos # (Auto) Baso # (Auto) ABG pH ABG pCO2 ABG pO2 ABG HCO3 ABG Total CO2 ABG O2 Saturation ABG Base Excess FiO2 Sodium 143 Potassium 4.4 Chloride 117 H Carbon Dioxide < 5 L* BUN 10 Creatinine 0.61 Estimated GFR > 60.0 BUN/Creatinine Ratio 16.4 Glucose 135 H D Lactate Calcium 8.5 Total Bilirubin AST ALT Alkaline Phosphatase Troponin I Total Protein Albumin Globulin Albumin/Globulin Ratio Procalcitonin TSH Free T4 Urine Color Yellow Urine Appearance Clear Urine pH 5.0 Ur Specific [place] 1.020 Urine Protein 1+ H Urine Glucose (UA) 1+ H Urine Ketones 3+ H Urine Occult Blood 1+ H Urine Nitrate Negative Urine Bilirubin Negative Urine Urobilinogen 0.2 Ur Leukocyte Esterase Negative Urine RBC 0-1/hpf Urine WBC 5-10/hpf H Ur Squamous Epith Cells 0-1 /hpf Urine Bacteria Few (2-10) H Hyaline Casts 5-10/lpf Ur Culture Indicated? Specimen cultured Ketones SARS-CoV-2 (PCR) Negative 07/23/21 07/23/21 17:05 18:55 WBC RBC Hgb Hct MCV MCH MCHC RDW Plt Count Neut % (Auto) Lymph % (Auto) [place] % (Auto) Eos % (Auto) Baso % (Auto) Neut # (Auto) Lymph # (Auto) [place] # (Auto) Eos # (Auto) Baso # (Auto) ABG pH 7.10 L* ABG pCO2 9.9 L* ABG pO2 129 H ABG HCO3 3 L ABG Total CO2 < 5 L ABG O2 Saturation 98 ABG Base Excess -27.0 L FiO2 21 Sodium 143 Potassium 4.5 Chloride 115 H Carbon Dioxide < 5 L* BUN 9 Creatinine 0.59 Estimated GFR > 60.0 BUN/Creatinine Ratio 15.3 Glucose 172 H Lactate Calcium 9.1 Total Bilirubin AST ALT Alkaline Phosphatase Troponin I Total Protein Albumin Globulin Albumin/Globulin Ratio Procalcitonin TSH Free T4 Urine Color Urine Appearance Urine pH Ur Specific [place] Urine Protein Urine Glucose (UA) Urine Ketones Urine Occult Blood Urine Nitrate Urine Bilirubin Urine Urobilinogen Ur Leukocyte Esterase Urine RBC Urine WBC Ur Squamous Epith Cells Urine Bacteria Hyaline Casts Ur Culture Indicated? Ketones SARS-CoV-2 (PCR) Assessment & Plan Assessment and plan (1) DKA, type 1: Qualifiers: Diabetes mellitus complication detail: without coma Qualified Code(s): E10.10 - Type 1 diabetes mellitus with ketoacidosis without coma Status: Acute (2) Type 1 diabetes: Status: Acute Assessment & Plan narrative: DKA Severe metabolic acisosis Presumed UTI -Continue with unit insulin gtt protocol -q1h POCT -Continue with D5 1/2 NS, add KCL when/if K falls <4 -Serum HCO3 remains <5, pH 7.0, 1 amp HCO3 now -Once GAP remains closed on repeat BMP, provide long acting insulin and ISS coverage, then discontinue insulin gtt AND D5 infusion 2-3 hours later -Continue with ceftriaxone, follow cultures -Please do not hesitate to contact teleICU service for any questions or concerns Time Spent With Patient Critical Care time: I spent a total of [] minutes of critical care time on this patient's care today; this time is exclusive of procedural time.
[2021-07-23] MEDS: SODIUM BICARB 8.4% SYRINGE 50 MEQ IV (20:29)
[2021-07-23 20:32] LABS: Adenovirus Not Detected (Not Detect); Bordetella pertussis Not Detected (Not Detecte); Chlamydophila pneumoniae Not Detected (Not Detect); Coronavirus 229E Not Detected (Not Detect); Coronavirus HKU1 Not Detected (Not Detect); Coronavirus NL 63 Not Detected (Not Detect); Coronavirus OC43 Not Detected (Not Detect); Human Metapneumovirus Not Detected (Not Detect); Human Rhinovirus/Enterovirus Not Detected (Not Detect); Influenza A Not Detected (Not Detect); Influenza B Not Detected (Not Detect); Mycoplasma pneumoniae Not Detected (Not Detect); Parainfluenza Virus 1 Not Detected (Not Detect); Parainfluenza Virus 2 Not Detected (Not Detect); Parainfluenza Virus 3 Not Detected (Not Detect); Parainfluenza Virus 4 Not Detected (Not Detect); Respiratory Syncytial Virus Not Detected (Not Detect)
[2021-07-23] MEDS: METOCLOPRAMIDE 10 MG/2 ML INJ 5 MG IV (21:43)
[2021-07-23] MEDS: MORPHINE 2 MG/ML INJ IV (21:43)
[2021-07-23 21:58] LABS: HCO3 VBG 6 mmol/L (23-28); Oxygen Saturation VBG 81 % (70-75); PCO2 VBG 14.8 mmHg (45-50); PO2 VBG 51 mmHg (35-45); Total CO2 VBG 7 mmol/L (24-29); pH VBG 7.23 (7.33-7.43)
[2021-07-23] MEDS: DEXTROSE 5%-0.45% NS 1,000 ML 133 ML IV (22:14)
--- NOTE | 2021-07-23 22:49 | PC.ADMIT ---
[address] Admission Note: 1615 Pt arrived via gurney from ED, insulin gtt infusing at 6 units/hr, 2nd liter bolus finishing infusion started in ED. Pt able to move to bed without slide board, monitoring equipment attached, admission assessment completed, oriented to room and call light system, at bedside, Tele ICU Doctor construction carpenters helper Dr. Bartholomew updated on patient and was taken via portable monitor to patient bedside. Bed low and locked, call light within reach, will continue to monitor. The patient,Teresa Crump,31 y/o, was given written information regarding hospital policies, unit procedures and contact persons. Patient's smoking status: Never smoker. Vital Signs - 8 hr 07/23/21 15:00 07/23/21 15:30 07/23/21 15:58 Temperature Pulse Rate 120 H 116 H 121 H Respiratory Rate 28 H 38 H 30 H Blood Pressure 148/74 H Pulse Oximetry 99 100 99 07/23/21 16:10 07/23/21 16:11 07/23/21 16:15 Temperature 98.4 F Pulse Rate 124 H 118 H Respiratory Rate 31 H 32 H Blood Pressure 128/73 128/73 Pulse Oximetry 99 07/23/21 16:30 07/23/21 17:00 07/23/21 17:15 Temperature 99.2 F Pulse Rate 127 H 111 H 108 H Respiratory Rate 35 H 31 H 28 H Blood Pressure 136/65 Pulse Oximetry 100 100 07/23/21 17:19 07/23/21 17:30 07/23/21 18:00 Temperature Pulse Rate 108 H 109 H 105 H Respiratory Rate 35 H 37 H 34 H Blood Pressure 136/65 Pulse Oximetry 100 100 100 07/23/21 18:15 07/23/21 18:16 07/23/21 18:30 Temperature 99.4 F Pulse Rate 112 H 112 H 112 H Respiratory Rate 31 H 30 H 31 H Blood Pressure 138/70 138/70 Pulse Oximetry 100 99 99 07/23/21 19:00 07/23/21 19:15 07/23/21 19:30 Temperature 99.2 F Pulse Rate 109 H 112 H 112 H Respiratory Rate 35 H 30 H 36 H Blood Pressure 139/64 Pulse Oximetry 99 99 99 07/23/21 20:00 07/23/21 20:14 07/23/21 20:15 Temperature 98.8 F Pulse Rate 113 H 113 H 114 H Respiratory Rate 29 H 30 H 29 H Blood Pressure 135/63 135/63 Pulse Oximetry 98 98 98 07/23/21 21:16 07/23/21 22:15 Temperature 98.9 F 99.2 F Pulse Rate 108 H 111 H Respiratory Rate 29 H 33 H Blood Pressure 133/61 146/61 H Pulse Oximetry 98 98
[2021-07-23 23:47] LABS: BUN Creatinine Ratio 15.4 (6-22); Blood Urea Nitrogen 8 mg/dL (7-17); Calcium 8.8 mg/dL (8.4-10.2); Chloride 115 mmol/L (98-107); Estimated Glomerular Filt Rate > 60.0 mL/min (>60); Glucose 137 mg/dL (70-100); HEMOLYSIS 15 (0-50); Potassium 3.6 mmol/L (3.4-5.1); Sodium 139 mmol/L (137-145)
[2021-07-24] VITALS (12 sets, daily range): BP systolic 102–138; BP diastolic 60–78; PULSE 79–118; RESP 18–32; TEMP 36.6–37.2; O2SAT 94–99
[2021-07-24] LABS: Carbon Dioxide 7 mmol/L (22-32)
--- NOTE | 2021-07-24 00:51 | PC.NURSE ---
Addendum entered by Raisa De La Cruz R.N. 07/24/21 08:09: Per GREG Hernandez, not to start D10W, though CBG per protocol does suggust it should be started. Verified x2 with GREG. Drawn labs as ordered from midline. Gap is nearly closed. Resting quietly with lights low. Addendum entered by Raisa De La Cruz R.N. 07/24/21 03:39: D10W for IVF per protocol Original Note: Noc Shift Assumed care of Pt @ 2300, Insulin gtt infusing @ 1.8mls/hr (1.8units/hr) CBG continue with hourly checks, 121, 130. Maint IVF D51/2NS @ 133mls/hr. Labs drawn @ 2315, with critical/improved C02 @ 7. Anion Gap 18, Pt reports improved nausea and generalized pain, remains light sensitive, assisted to reposition for comfort. Grouping care as able. VSS, tachycardic into the 110-120's. Pt remains NPO. No meds for nausea needed at present. K replaced per protocol.
[2021-07-24] MEDS: POTASSIUM CHLORIDE IN WATER 10 MEQ/100 ML PIGGYBACK 100 MEQ IV ×12 (01:35→19:05)
[2021-07-24] MEDS: MORPHINE 2 MG/ML INJ IV (01:37)
[2021-07-24 01:59] LABS: HCO3 VBG 8 mmol/L (23-28); Oxygen Saturation VBG 89 % (70-75); PCO2 VBG 18.4 mmHg (45-50); PO2 VBG 64 mmHg (35-45); Total CO2 VBG 9 mmol/L (24-29); pH VBG 7.25 (7.33-7.43)
[2021-07-24 04:13] LABS: Blood Urea Nitrogen 7 mg/dL (7-17); Calcium 8.6 mg/dL (8.4-10.2); Chloride 113 mmol/L (98-107); Estimated Glomerular Filt Rate > 60.0 mL/min (>60); Glucose 139 mg/dL (70-100); Sodium 137 mmol/L (137-145)
[2021-07-24 04:16] LABS: HEMOLYSIS 77 (0-50)
[2021-07-24 04:17] LABS: Potassium 3.9 mmol/L (3.4-5.1)
[2021-07-24 04:19] LABS: Carbon Dioxide 9 mmol/L (22-32)
[2021-07-24 04:57] LABS: Hematocrit 43.4 % (36-46); Hemoglobin 14.2 g/dL (12.0-16.0); Mean Corpuscular HGB Conc 32.7 % (30-36); Mean Corpuscular Hemoglobin 28.6 PG (26-34); Mean Corpuscular Volume 87.6 fL (80-100); Platelet Count 316 X10^3/uL (150-400); Red Blood Cell Count 4.96 X10^6/uL (4.0-5.2); Red Cell Distribution Width 13.5 % (11.6-14.8); White Blood Cell Count 15.9 X10^3/uL (4.5-11.0)
[2021-07-24 04:58] LABS: Add Manual Diff / Slide Review YES
[2021-07-24 04:59] LABS: Hemoglobin A1C% w Est Avg Glu 9.7 % (4.0-6.0)
[2021-07-24] MEDS: DEXTROSE 5%-0.45% NS 1,000 ML 133 ML IV ×2 (06:20→14:18)
[2021-07-24 06:31] LABS: Total Cells Counted 100
[2021-07-24 06:32] LABS: Neutrophils Absolute Manual 12879 /uL (3000-5900); RBC Morphology Normal Morphology
[2021-07-24 07:53] LABS: BUN Creatinine Ratio 12.5 (6-22); Blood Urea Nitrogen 6 mg/dL (7-17); Calcium 8.8 mg/dL (8.4-10.2); Carbon Dioxide 12 mmol/L (22-32); Chloride 111 mmol/L (98-107); Estimated Glomerular Filt Rate > 60.0 mL/min (>60); Glucose 125 mg/dL (70-100); HEMOLYSIS < 15 (0-50); Potassium 3.4 mmol/L (3.4-5.1); Sodium 136 mmol/L (137-145)
[2021-07-24 08:25] LABS: PO2 VBG 58 mmHg (35-45); pH VBG 7.31 (7.33-7.43)
[2021-07-24 08:26] LABS: HCO3 VBG 13 mmol/L (23-28); Oxygen Saturation VBG 88 % (70-75); Total CO2 VBG 14 mmol/L (24-29)
[2021-07-24] MEDS: ACETAMINOPHEN 325 MG TABLET 975 MG PO (09:05)
[2021-07-24] MEDS: LIDOCAINE VISCOUS 2% 30 ML, MAG HYDROX/ALUMINUM/SIMETH SUS 30 ML, NYSTATIN SUSP 3,000,0... MM (10:00)
[2021-07-24] MEDS: SODIUM BICARB 8.4% VIAL 150 MEQ in DEXTROSE 5% WATER 1,000 ML IV (10:50)
--- NOTE | 2021-07-24 10:59 | PM.PN.EICU ---
Subjective Subjective :: 31W with PMH difficult to control Type 1 Diabetes, thyroiditis admitted 07/23/21 with DKA. She was recently started on Trulicity and developed nausea and vomitting and had trouble keeping her medications down. She stopped taking her short acting insulin. Her AG was > 26. ROS was + for nausea/vomitting, abd pain, and some urinary frequency and discomfort. Pt. give IVF and started on insulin drip. Pt was afebrile but WBC 14.6. U/A showed 5-10 wbc, 2-10 bacteria. Pt. is covid neg. Pt. cultured and started on Ceftrfiaxone for possible UTI. 07/24/21: Patient's AG is down to 13 this morning though her HCOr is 12. Her insulin drip requirement is currently at 1.8u/hr. Subjective: Pt. is hungry and would like to eat This patient was seen via real time interactive two-way audiovisual telecommunication. Current Medications Current Medications Medications: Home Medications insulin glargine 100 unit/mL (3 mL) subcutaneous pen (Lantus Solostar U-100 Insulin) 38 unit SUBCUT QAM 07/23/21 [History Confirmed 07/23/21] insulin regular hum U-500 conc (Humulin R U-500 (Conc) Insulin Kwikpen) 20 unit SUBCUT QACHS 07/23/21 [History Confirmed 07/23/21] Visit Medications (administered) Generic Name Dose Route Start Last Admin Trade Name Freq PRN Reason Stop Dose Admin Acetaminophen 975 mg 07/24/21 08:54 07/24/21 09:05 Acetaminophen 325 Mg Tablet PO 975 mg Q8H PRN Administration Pain, Mild (1-3) Lidocaine HCl 30 ml/ Al Hydrox 0 ml 07/24/21 08:54 07/24/21 10:00 /Mg Hydrox/Simethicone 30 ml/ MM 10 ml Nystatin 3,000,000 unit Q4H PRN Administration sore throat INSULIN DRIP PREMIX 100 unit in 100 mls @ 6 mls/hr 07/23/21 13:30 07/23/21 19:00 Myxredlin Drip Premix IV 1.8 ml/hr TITRATE CORAZON 1.8 mls/hr Titration Protocol Sodium Chloride 1,000 mls @ 500 mls/hr 07/23/21 15:43 07/23/21 16:39 Normal Saline 0.9% IV Not Given CONT CORAZON Dextrose/Sodium Chloride 1,000 mls @ 500 mls/hr 07/23/21 16:45 07/24/21 10:51 Dextrose 5%-0.45% Ns IV 0 mls/hr CONT CORAZON Infusion Dextrose 1,000 mls @ 88.5 mls/hr 07/24/21 03:45 07/24/21 06:20 D10w IV Not Given CONT CORAZON Protocol POTASSIUM CHLORIDE IN WATER 10 meq in 100 mls @ 100 mls/hr 07/24/21 08:45 07/24/21 10:14 Potassium Cl 10 Meq/100 Ml Christi IV 07/24/21 12:44 100 mls/hr Q1H CORAZON Administration Sodium Bicarbonate 150 meq/ 1,150 mls @ 150 mls/hr 07/24/21 10:15 07/24/21 10:50 Dextrose IV 07/24/21 14:00 150 mls/hr CONT CORAZON Administration Metoclopramide HCl 5 mg 07/23/21 20:56 07/23/21 21:43 Metoclopramide 10 Mg/2 Ml Inj IV 5 mg Q6HR PRN Administration Nausea And Vomiting Morphine Sulfate 2 mg 07/23/21 20:55 07/24/21 01:37 Morphine 2 Mg/Ml Inj IV 2 mg Q2HR PRN Administration Pain, Moderate (4-6) Ondansetron HCl 4 mg 07/23/21 15:43 07/23/21 20:28 Ondansetron 4 Mg/2 Ml Inj IV 4 mg Q6HR PRN Administration Nausea And Vomiting Pantoprazole Sodium 40 mg 07/23/21 17:00 07/23/21 17:26 Pantoprazole 40 Mg Vial IV 40 mg DAILY@1700 CORAZON Administration Objective Labs Result Diagrams: 07/24/21 04:35 07/24/21 07:30 Labs: Laboratory Results - last 24 hr 07/23/21 07/23/21 07/23/21 12:32 12:32 12:32 WBC 14.6 H RBC 5.60 H Hgb 16.5 H Hct 50.8 H MCV 90.6 MCH 29.4 MCHC 32.5 RDW 13.8 Plt Count 479 H Neut % (Auto) 86.4 H Lymph % (Auto) 8.7 L [place] % (Auto) 4.8 Eos % (Auto) 0.0 L Baso % (Auto) 0.1 Neut # (Auto) 23926 H Lymph # (Auto) 1300 [place] # (Auto) 700 Eos # (Auto) 0 Baso # (Auto) 0 Total Counted Seg Neutrophils % Band Neutrophils % Lymphocytes % (Manual) Monocytes % (Manual) Neutrophils # (Manual) RBC Morphology ABG pH ABG pCO2 ABG pO2 ABG HCO3 ABG Total CO2 ABG O2 Saturation ABG Base Excess VBG pH VBG pCO2 VBG pO2 VBG HCO3 VBG Total CO2 VBG O2 Saturation VBG Base Excess FiO2 Sodium 140 Potassium 5.1 Chloride 109 H Carbon Dioxide < 5 L* BUN 11 Creatinine 0.77 Estimated GFR > 60.0 BUN/Creatinine Ratio 14.3 Glucose 391 H D Hemoglobin A1c Lactate 1.6 Calcium 9.4 Total Bilirubin 0.4 AST 16 ALT 22 Alkaline Phosphatase 142 H Troponin I Total Protein 9.2 H Albumin 5.2 H Globulin 4.0 Albumin/Globulin Ratio 1.3 Procalcitonin 0.09 TSH Free T4 Urine Color Urine Appearance Urine pH Ur Specific [place] Urine Protein Urine Glucose (UA) Urine Ketones Urine Occult Blood Urine Nitrate Urine Bilirubin Urine Urobilinogen Ur Leukocyte Esterase Urine RBC Urine WBC Ur Squamous Epith Cells Urine Bacteria Hyaline Casts Ur Culture Indicated? Nasal Screen MRSA (PCR) Ketones 8.38 H Chlamy pneumoniae PCR Adenovirus (PCR) B. pertussis DNA (PCR) B.parapertussis DNA PCR Coronavirus OC43 (PCR) Coronavirus HKU1 (PCR) Coronavirus 229E (PCR) SARS-CoV-2 (PCR) Coronavirus NL63 (PCR) Human Metapneumovir PCR Influenza Type A (PCR) Influenza Type B (PCR) M. pneumoniae (PCR) Parainfluenza 1 (PCR) Parainfluenza 2 (PCR) Parainfluenza 3 (PCR) Parainfluenza 4 (PCR) RSV (PCR) Entero/Rhino (PCR) 07/23/21 07/23/21 07/23/21 12:32 12:32 13:00 WBC RBC Hgb Hct MCV MCH MCHC RDW Plt Count Neut % (Auto) Lymph % (Auto) [place] % (Auto) Eos % (Auto) Baso % (Auto) Neut # (Auto) Lymph # (Auto) [place] # (Auto) Eos # (Auto) Baso # (Auto) Total Counted Seg Neutrophils % Band Neutrophils % Lymphocytes % (Manual) Monocytes % (Manual) Neutrophils # (Manual) RBC Morphology ABG pH 7.04 L* ABG pCO2 9.1 L* ABG pO2 124 H ABG HCO3 3 L ABG Total CO2 < 5 L ABG O2 Saturation 97 ABG Base Excess -28.0 L VBG pH VBG pCO2 VBG pO2 VBG HCO3 VBG Total CO2 VBG O2 Saturation VBG Base Excess FiO2 21 Sodium Potassium Chloride Carbon Dioxide BUN Creatinine Estimated GFR BUN/Creatinine Ratio Glucose Hemoglobin A1c Lactate Calcium Total Bilirubin AST ALT Alkaline Phosphatase Troponin I < 0.012 Total Protein Albumin Globulin Albumin/Globulin Ratio Procalcitonin TSH 0.38 L Free T4 1.16 Urine Color Urine Appearance Urine pH Ur Specific [place] Urine Protein Urine Glucose (UA) Urine Ketones Urine Occult Blood Urine Nitrate Urine Bilirubin Urine Urobilinogen Ur Leukocyte Esterase Urine RBC Urine WBC Ur Squamous Epith Cells Urine Bacteria Hyaline Casts Ur Culture Indicated? Nasal Screen MRSA (PCR) Ketones Chlamy pneumoniae PCR Adenovirus (PCR) B. pertussis DNA (PCR) B.parapertussis DNA PCR Coronavirus OC43 (PCR) Coronavirus HKU1 (PCR) Coronavirus 229E (PCR) SARS-CoV-2 (PCR) Coronavirus NL63 (PCR) Human Metapneumovir PCR Influenza Type A (PCR) Influenza Type B (PCR) M. pneumoniae (PCR) Parainfluenza 1 (PCR) Parainfluenza 2 (PCR) Parainfluenza 3 (PCR) Parainfluenza 4 (PCR) RSV (PCR) Entero/Rhino (PCR) 07/23/21 07/23/21 07/23/21 13:58 14:10 16:40 WBC RBC Hgb Hct MCV MCH MCHC RDW Plt Count Neut % (Auto) Lymph % (Auto) [place] % (Auto) Eos % (Auto) Baso % (Auto) Neut # (Auto) Lymph # (Auto) [place] # (Auto) Eos # (Auto) Baso # (Auto) Total Counted Seg Neutrophils % Band Neutrophils % Lymphocytes % (Manual) Monocytes % (Manual) Neutrophils # (Manual) RBC Morphology ABG pH ABG pCO2 ABG pO2 ABG HCO3 ABG Total CO2 ABG O2 Saturation ABG Base Excess VBG pH VBG pCO2 VBG pO2 VBG HCO3 VBG Total CO2 VBG O2 Saturation VBG Base Excess FiO2 Sodium 143 Potassium 4.4 Chloride 117 H Carbon Dioxide < 5 L* BUN 10 Creatinine 0.61 Estimated GFR > 60.0 BUN/Creatinine Ratio 16.4 Glucose 135 H D Hemoglobin A1c Lactate Calcium 8.5 Total Bilirubin AST ALT Alkaline Phosphatase Troponin I Total Protein Albumin Globulin Albumin/Globulin Ratio Procalcitonin TSH Free T4 Urine Color Yellow Urine Appearance Clear Urine pH 5.0 Ur Specific [place] 1.020 Urine Protein 1+ H Urine Glucose (UA) 1+ H Urine Ketones 3+ H Urine Occult Blood 1+ H Urine Nitrate Negative Urine Bilirubin Negative Urine Urobilinogen 0.2 Ur Leukocyte Esterase Negative Urine RBC 0-1/hpf Urine WBC 5-10/hpf H Ur Squamous Epith Cells 0-1 /hpf Urine Bacteria Few (2-10) H Hyaline Casts 5-10/lpf Ur Culture Indicated? Specimen cultured Nasal Screen MRSA (PCR) Ketones Chlamy pneumoniae PCR Adenovirus (PCR) B. pertussis DNA (PCR) B.parapertussis DNA PCR Coronavirus OC43 (PCR) Coronavirus HKU1 (PCR) Coronavirus 229E (PCR) SARS-CoV-2 (PCR) Negative Coronavirus NL63 (PCR) Human Metapneumovir PCR Influenza Type A (PCR) Influenza Type B (PCR) M. pneumoniae (PCR) Parainfluenza 1 (PCR) Parainfluenza 2 (PCR) Parainfluenza 3 (PCR) Parainfluenza 4 (PCR) RSV (PCR) Entero/Rhino (PCR) 07/23/21 07/23/21 07/23/21 17:05 18:40 18:40 WBC RBC Hgb Hct MCV MCH MCHC RDW Plt Count Neut % (Auto) Lymph % (Auto) [place] % (Auto) Eos % (Auto) Baso % (Auto) Neut # (Auto) Lymph # (Auto) [place] # (Auto) Eos # (Auto) Baso # (Auto) Total Counted Seg Neutrophils % Band Neutrophils % Lymphocytes % (Manual) Monocytes % (Manual) Neutrophils # (Manual) RBC Morphology ABG pH 7.10 L* ABG pCO2 9.9 L* ABG pO2 129 H ABG HCO3 3 L ABG Total CO2 < 5 L ABG O2 Saturation 98 ABG Base Excess -27.0 L VBG pH VBG pCO2 VBG pO2 VBG HCO3 VBG Total CO2 VBG O2 Saturation VBG Base Excess FiO2 21 Sodium Potassium Chloride Carbon Dioxide BUN Creatinine Estimated GFR BUN/Creatinine Ratio Glucose Hemoglobin A1c Lactate Calcium Total Bilirubin AST ALT Alkaline Phosphatase Troponin I Total Protein Albumin Globulin Albumin/Globulin Ratio Procalcitonin TSH Free T4 Urine Color Urine Appearance Urine pH Ur Specific [place] Urine Protein Urine Glucose (UA) Urine Ketones Urine Occult Blood Urine Nitrate Urine Bilirubin Urine Urobilinogen Ur Leukocyte Esterase Urine RBC Urine WBC Ur Squamous Epith Cells Urine Bacteria Hyaline Casts Ur Culture Indicated? Nasal Screen MRSA (PCR) Negative for mrsa Ketones Chlamy pneumoniae PCR Not detected Adenovirus (PCR) Not detected B. pertussis DNA (PCR) Not detected B.parapertussis DNA PCR Not Reportable Coronavirus OC43 (PCR) Not detected Coronavirus HKU1 (PCR) Not detected Coronavirus 229E (PCR) Not detected SARS-CoV-2 (PCR) Not Reportable Coronavirus NL63 (PCR) Not detected Human Metapneumovir PCR Not detected Influenza Type A (PCR) Not detected Influenza Type B (PCR) Not detected M. pneumoniae (PCR) Not detected Parainfluenza 1 (PCR) Not detected Parainfluenza 2 (PCR) Not detected Parainfluenza 3 (PCR) Not detected Parainfluenza 4 (PCR) Not detected RSV (PCR) Not detected Entero/Rhino (PCR) Not detected 07/23/21 07/23/21 07/23/21 18:55 21:43 23:15 WBC RBC Hgb Hct MCV MCH MCHC RDW Plt Count Neut % (Auto) Lymph % (Auto) [place] % (Auto) Eos % (Auto) Baso % (Auto) Neut # (Auto) Lymph # (Auto) [place] # (Auto) Eos # (Auto) Baso # (Auto) Total Counted Seg Neutrophils % Band Neutrophils % Lymphocytes % (Manual) Monocytes % (Manual) Neutrophils # (Manual) RBC Morphology ABG pH ABG pCO2 ABG pO2 ABG HCO3 ABG Total CO2 ABG O2 Saturation ABG Base Excess VBG pH 7.23 L VBG pCO2 14.8 L VBG pO2 51 H VBG HCO3 6 L VBG Total CO2 7 L VBG O2 Saturation 81 H VBG Base Excess -21.0 L FiO2 Sodium 143 139 Potassium 4.5 3.6 Chloride 115 H 115 H Carbon Dioxide < 5 L* 7 L* BUN 9 8 Creatinine 0.59 0.52 Estimated GFR > 60.0 > 60.0 BUN/Creatinine Ratio 15.3 15.4 Glucose 172 H 137 H Hemoglobin A1c Lactate Calcium 9.1 8.8 Total Bilirubin AST ALT Alkaline Phosphatase Troponin I Total Protein Albumin Globulin Albumin/Globulin Ratio Procalcitonin TSH Free T4 Urine Color Urine Appearance Urine pH Ur Specific [place] Urine Protein Urine Glucose (UA) Urine Ketones Urine Occult Blood Urine Nitrate Urine Bilirubin Urine Urobilinogen Ur Leukocyte Esterase Urine RBC Urine WBC Ur Squamous Epith Cells Urine Bacteria Hyaline Casts Ur Culture Indicated? Nasal Screen MRSA (PCR) Ketones Chlamy pneumoniae PCR Adenovirus (PCR) B. pertussis DNA (PCR) B.parapertussis DNA PCR Coronavirus OC43 (PCR) Coronavirus HKU1 (PCR) Coronavirus 229E (PCR) SARS-CoV-2 (PCR) Coronavirus NL63 (PCR) Human Metapneumovir PCR Influenza Type A (PCR) Influenza Type B (PCR) M. pneumoniae (PCR) Parainfluenza 1 (PCR) Parainfluenza 2 (PCR) Parainfluenza 3 (PCR) Parainfluenza 4 (PCR) RSV (PCR) Entero/Rhino (PCR) 07/24/21 07/24/21 07/24/21 01:41 03:30 04:35 WBC 15.9 H RBC 4.96 Hgb 14.2 Hct 43.4 MCV 87.6 D MCH 28.6 MCHC 32.7 RDW 13.5 Plt Count 316 Neut % (Auto) Not Reportable Lymph % (Auto) Not Reportable [place] % (Auto) Not Reportable Eos % (Auto) Not Reportable Baso % (Auto) Not Reportable Neut # (Auto) Lymph # (Auto) Not Reportable [place] # (Auto) Not Reportable Eos # (Auto) Baso # (Auto) Not Reportable Total Counted 100 Seg Neutrophils % 73.0 H Band Neutrophils % 8.0 H Lymphocytes % (Manual) 13.0 L Monocytes % (Manual) 6.0 Neutrophils # (Manual) 98126 H RBC Morphology Normal morphology ABG pH ABG pCO2 ABG pO2 ABG HCO3 ABG Total CO2 ABG O2 Saturation ABG Base Excess VBG pH 7.25 L VBG pCO2 18.4 L VBG pO2 64 H VBG HCO3 8 L VBG Total CO2 9 L VBG O2 Saturation 89 H VBG Base Excess -19.0 L FiO2 Sodium 137 Potassium 3.9 Chloride 113 H Carbon Dioxide 9 L* BUN 7 Creatinine 0.50 L Estimated GFR > 60.0 BUN/Creatinine Ratio 14.0 Glucose 139 H Hemoglobin A1c Lactate Calcium 8.6 Total Bilirubin AST ALT Alkaline Phosphatase Troponin I Total Protein Albumin Globulin Albumin/Globulin Ratio Procalcitonin TSH Free T4 Urine Color Urine Appearance Urine pH Ur Specific [place] Urine Protein Urine Glucose (UA) Urine Ketones Urine Occult Blood Urine Nitrate Urine Bilirubin Urine Urobilinogen Ur Leukocyte Esterase Urine RBC Urine WBC Ur Squamous Epith Cells Urine Bacteria Hyaline Casts Ur Culture Indicated? Nasal Screen MRSA (PCR) Ketones Chlamy pneumoniae PCR Adenovirus (PCR) B. pertussis DNA (PCR) B.parapertussis DNA PCR Coronavirus OC43 (PCR) Coronavirus HKU1 (PCR) Coronavirus 229E (PCR) SARS-CoV-2 (PCR) Coronavirus NL63 (PCR) Human Metapneumovir PCR Influenza Type A (PCR) Influenza Type B (PCR) M. pneumoniae (PCR) Parainfluenza 1 (PCR) Parainfluenza 2 (PCR) Parainfluenza 3 (PCR) Parainfluenza 4 (PCR) RSV (PCR) Entero/Rhino (PCR) 07/24/21 07/24/21 07/24/21 04:35 07:30 07:43 WBC RBC Hgb Hct MCV MCH MCHC RDW Plt Count Neut % (Auto) Lymph % (Auto) [place] % (Auto) Eos % (Auto) Baso % (Auto) Neut # (Auto) Lymph # (Auto) [place] # (Auto) Eos # (Auto) Baso # (Auto) Total Counted Seg Neutrophils % Band Neutrophils % Lymphocytes % (Manual) Monocytes % (Manual) Neutrophils # (Manual) RBC Morphology ABG pH ABG pCO2 ABG pO2 ABG HCO3 ABG Total CO2 ABG O2 Saturation ABG Base Excess VBG pH 7.31 L VBG pCO2 25.3 L VBG pO2 58 H VBG HCO3 13 L VBG Total CO2 14 L VBG O2 Saturation 88 H VBG Base Excess -13.0 L FiO2 Sodium 136 L Potassium 3.4 Chloride 111 H Carbon Dioxide 12 L BUN 6 L Creatinine 0.48 L Estimated GFR > 60.0 BUN/Creatinine Ratio 12.5 Glucose 125 H Hemoglobin A1c 9.7 H Lactate Calcium 8.8 Total Bilirubin AST ALT Alkaline Phosphatase Troponin I Total Protein Albumin Globulin Albumin/Globulin Ratio Procalcitonin TSH Free T4 Urine Color Urine Appearance Urine pH Ur Specific [place] Urine Protein Urine Glucose (UA) Urine Ketones Urine Occult Blood Urine Nitrate Urine Bilirubin Urine Urobilinogen Ur Leukocyte Esterase Urine RBC Urine WBC Ur Squamous Epith Cells Urine Bacteria Hyaline Casts Ur Culture Indicated? Nasal Screen MRSA (PCR) Ketones Chlamy pneumoniae PCR Adenovirus (PCR) B. pertussis DNA (PCR) B.parapertussis DNA PCR Coronavirus OC43 (PCR) Coronavirus HKU1 (PCR) Coronavirus 229E (PCR) SARS-CoV-2 (PCR) Coronavirus NL63 (PCR) Human Metapneumovir PCR Influenza Type A (PCR) Influenza Type B (PCR) M. pneumoniae (PCR) Parainfluenza 1 (PCR) Parainfluenza 2 (PCR) Parainfluenza 3 (PCR) Parainfluenza 4 (PCR) RSV (PCR) Entero/Rhino (PCR) Exam Vital Signs (past 8 hours): - 07/24/21 03:00 07/24/21 04:17 07/24/21 06:17 Temperature 98.4 F Pulse Rate 118 H 111 H 115 H Respiratory Rate 28 H 32 H Blood Pressure 118/75 118/70 Pulse Oximetry 99 97 07/24/21 07:24 07/24/21 08:43 Temperature 97.8 F Pulse Rate 106 H Respiratory Rate 18 Blood Pressure 121/69 Pulse Oximetry 97 97 Oxygen Delivery Method Room Air Oxygen Flow Rate 0 Assessment & Plan Assessment & Plan narrative: Assessment: -DKA -non-AG metabolic acidosis -type 1 DM -leukocytosis Plan DKA: Patient's AG down to 13 but HCO3 is 12 so patient has a mostly non AG metabolic acidosis at this time probably from NS she recieved. Pt.'s AG has not closed yet but it is almost there and patient wishes to eat and therefore will start carb consistent diet with lispro 2 units prn meals -continue insulin drip and titrate for euglycemia, lipsro 2 u prn meals -repeat chem 7 at 2 pm, if AG closes then will transition from insulin drip to all SQ insulin regimen -replace electrolytes as needed non Ag metabolic acidosis -will give bicarb drip for about 4 hours Leukocytosis- stress response? -pt given Ceftriaxone on admission for possible UTI but it was canceled when U culture came back negative -pt. remains afebrile, if she spikes ever or WBC continues to trend up then will repeat CXR and restart empiric antibiotics time spent 45 min Time Spent With Patient Critical Care time: I spent a total of [] minutes of critical care time on this patient's care today; this time is exclusive of procedural time.
[2021-07-24] MEDS: INSULIN LISPRO 100 UNIT/ML 3ML VIAL SUBCUT (12:23)
--- NOTE | 2021-07-24 13:44 | PC.NURSE ---
Addendum entered by Garth Lama R.N. 07/24/21 14:51: called to Dr. Raymundo. Reported 1400 BMP results are available at this time. Anion gap is closed. K+ 3.2 and 40 meq IV K+ ordered per protocol. Asked Dr. Raymundo if she would like this RN to update patient safety tech or if she would like to. Dr. Raymundo states she will update and discuss pt/transition orders. Original Note: 0945- Multidisciplinary rounds. Reported 0730 labs, VBG, insulin gtt rate, IVF/rate. Plan is to start bicarb gtt and run until 1400 at which time will obtain another BMP. 1100- Spoke with patient safety tech. Reported pt requesting food. Orders received for diabetic diet and 2 units lispro subcut AC PRN food. Instruction received to continue to check BGs q1h and adjust rate accordingly.
[2021-07-24 14:33] LABS: BUN Creatinine Ratio 12.5 (6-22); Blood Urea Nitrogen 5 mg/dL (7-17); Calcium 8.6 mg/dL (8.4-10.2); Carbon Dioxide 19 mmol/L (22-32); Chloride 110 mmol/L (98-107); Estimated Glomerular Filt Rate > 60.0 mL/min (>60); Glucose 203 mg/dL (70-100); HEMOLYSIS < 15 (0-50); Potassium 3.2 mmol/L (3.4-5.1); Sodium 137 mmol/L (137-145)
--- NOTE | 2021-07-24 15:25 | CM.DANOTE ---
DCP Brief Assessment Note Patient is a 31 yo female who was admitted on 07/23/21 for DKA. Pt has [employer] for insurance and her PCP is Raj Sands. EMR was reviewed. Per MD, pt with poorly controlled diabetes type 1 and admitted for DKA. Per RN, pt to be transitioned off insulin drip and independent in room and doing well and no concerns at this time. Pt lives in [place] with her spouse and is active and independent at baseline. Per MD, consulted with pt's Engineering Faculty Member and he has been working to get pt on the right medication and dose to better control her blood sugars and will f/u with pt after d/c in the next couple days rather than wait for her currently scheduled appointment with him for the first august. No bedside assessment due to triage needs and no identified barriers to discharge. Plan: SW to follow closely tomorrow towards confirming plan of d/c home with family and any further identified needs at d/c. MARIA ESTHER Kwon
[2021-07-24] MEDS: INSULIN GLARGINE 100 UNIT/ML 3ML PEN 38 UNIT SUBCUT (15:35)
--- NOTE | 2021-07-24 17:25 | PM.PN.1 ---
Subjective Subjective Date Patient Seen: 07/24/21 Interval history: The patient is a 31-year-old female who was started on Trulicity this week and developed immediate nausea and vomiting. She is a type 1 diabetic and ultimately developed diabetic ketoacidosis and was admitted to the hospital for treatment. She has had a significant anion gap acidosis. This moved to a non-anion gap acidosis. She currently is on IV bicarb per the fruit thinner machine operator. And the patient has had both improvement in both acidosis as well as hyperglycemia. She was able to tolerated diet today. Exam Vital Signs (past 8 hours): - 07/24/21 11:30 07/24/21 11:48 07/24/21 15:15 Temperature 98.8 F Pulse Rate 94 H 97 H Respiratory Rate 18 25 H Blood Pressure 114/60 114/71 Pulse Oximetry 94 95 Oxygen Delivery Method Room Air Oxygen Flow Rate 0 Narrative Exam Narrative: Ill-appearing young woman lying in bed, he complains of pain in her muscles, chest and throat Resp Other: Lungs clear to auscultation Cardio Other: Cardiac exam: Tachycardic regular rate and rhythm normal S1-S2 GI Other: Abdomen: Soft and nontender Extrem Other: Extremities: No edema Objective Labs Result Diagrams: 07/24/21 04:35 07/24/21 14:00 Labs: Laboratory Results - last 24 hr 07/23/21 07/23/21 07/23/21 12:32 17:05 18:40 WBC RBC Hgb Hct MCV MCH MCHC RDW Plt Count Neut % (Auto) Lymph % (Auto) [place] % (Auto) Eos % (Auto) Baso % (Auto) Lymph # (Auto) [place] # (Auto) Baso # (Auto) Total Counted Seg Neutrophils % Band Neutrophils % Lymphocytes % (Manual) Monocytes % (Manual) Neutrophils # (Manual) RBC Morphology ABG pH 7.10 L* ABG pCO2 9.9 L* ABG pO2 129 H ABG HCO3 3 L ABG Total CO2 < 5 L ABG O2 Saturation 98 ABG Base Excess -27.0 L VBG pH VBG pCO2 VBG pO2 VBG HCO3 VBG Total CO2 VBG O2 Saturation VBG Base Excess FiO2 21 Sodium Potassium Chloride Carbon Dioxide BUN Creatinine Estimated GFR BUN/Creatinine Ratio Glucose Hemoglobin A1c Calcium TSH 0.38 L Free T4 1.16 Nasal Screen MRSA (PCR) Negative for mrsa Chlamy pneumoniae PCR Adenovirus (PCR) B. pertussis DNA (PCR) B.parapertussis DNA PCR Coronavirus OC43 (PCR) Coronavirus HKU1 (PCR) Coronavirus 229E (PCR) SARS-CoV-2 (PCR) Coronavirus NL63 (PCR) Human Metapneumovir PCR Influenza Type A (PCR) Influenza Type B (PCR) M. pneumoniae (PCR) Parainfluenza 1 (PCR) Parainfluenza 2 (PCR) Parainfluenza 3 (PCR) Parainfluenza 4 (PCR) RSV (PCR) Entero/Rhino (PCR) 07/23/21 07/23/21 07/23/21 18:40 18:55 21:43 WBC RBC Hgb Hct MCV MCH MCHC RDW Plt Count Neut % (Auto) Lymph % (Auto) [place] % (Auto) Eos % (Auto) Baso % (Auto) Lymph # (Auto) [place] # (Auto) Baso # (Auto) Total Counted Seg Neutrophils % Band Neutrophils % Lymphocytes % (Manual) Monocytes % (Manual) Neutrophils # (Manual) RBC Morphology ABG pH ABG pCO2 ABG pO2 ABG HCO3 ABG Total CO2 ABG O2 Saturation ABG Base Excess VBG pH 7.23 L VBG pCO2 14.8 L VBG pO2 51 H VBG HCO3 6 L VBG Total CO2 7 L VBG O2 Saturation 81 H VBG Base Excess -21.0 L FiO2 Sodium 143 Potassium 4.5 Chloride 115 H Carbon Dioxide < 5 L* BUN 9 Creatinine 0.59 Estimated GFR > 60.0 BUN/Creatinine Ratio 15.3 Glucose 172 H Hemoglobin A1c Calcium 9.1 TSH Free T4 Nasal Screen MRSA (PCR) Chlamy pneumoniae PCR Not detected Adenovirus (PCR) Not detected B. pertussis DNA (PCR) Not detected B.parapertussis DNA PCR Not Reportable Coronavirus OC43 (PCR) Not detected Coronavirus HKU1 (PCR) Not detected Coronavirus 229E (PCR) Not detected SARS-CoV-2 (PCR) Not Reportable Coronavirus NL63 (PCR) Not detected Human Metapneumovir PCR Not detected Influenza Type A (PCR) Not detected Influenza Type B (PCR) Not detected M. pneumoniae (PCR) Not detected Parainfluenza 1 (PCR) Not detected Parainfluenza 2 (PCR) Not detected Parainfluenza 3 (PCR) Not detected Parainfluenza 4 (PCR) Not detected RSV (PCR) Not detected Entero/Rhino (PCR) Not detected 07/23/21 07/24/21 07/24/21 23:15 01:41 03:30 WBC RBC Hgb Hct MCV MCH MCHC RDW Plt Count Neut % (Auto) Lymph % (Auto) [place] % (Auto) Eos % (Auto) Baso % (Auto) Lymph # (Auto) [place] # (Auto) Baso # (Auto) Total Counted Seg Neutrophils % Band Neutrophils % Lymphocytes % (Manual) Monocytes % (Manual) Neutrophils # (Manual) RBC Morphology ABG pH ABG pCO2 ABG pO2 ABG HCO3 ABG Total CO2 ABG O2 Saturation ABG Base Excess VBG pH 7.25 L VBG pCO2 18.4 L VBG pO2 64 H VBG HCO3 8 L VBG Total CO2 9 L VBG O2 Saturation 89 H VBG Base Excess -19.0 L FiO2 Sodium 139 137 Potassium 3.6 3.9 Chloride 115 H 113 H Carbon Dioxide 7 L* 9 L* BUN 8 7 Creatinine 0.52 0.50 L Estimated GFR > 60.0 > 60.0 BUN/Creatinine Ratio 15.4 14.0 Glucose 137 H 139 H Hemoglobin A1c Calcium 8.8 8.6 TSH Free T4 Nasal Screen MRSA (PCR) Chlamy pneumoniae PCR Adenovirus (PCR) B. pertussis DNA (PCR) B.parapertussis DNA PCR Coronavirus OC43 (PCR) Coronavirus HKU1 (PCR) Coronavirus 229E (PCR) SARS-CoV-2 (PCR) Coronavirus NL63 (PCR) Human Metapneumovir PCR Influenza Type A (PCR) Influenza Type B (PCR) M. pneumoniae (PCR) Parainfluenza 1 (PCR) Parainfluenza 2 (PCR) Parainfluenza 3 (PCR) Parainfluenza 4 (PCR) RSV (PCR) Entero/Rhino (PCR) 07/24/21 07/24/21 07/24/21 04:35 04:35 07:30 WBC 15.9 H RBC 4.96 Hgb 14.2 Hct 43.4 MCV 87.6 D MCH 28.6 MCHC 32.7 RDW 13.5 Plt Count 316 Neut % (Auto) Not Reportable Lymph % (Auto) Not Reportable [place] % (Auto) Not Reportable Eos % (Auto) Not Reportable Baso % (Auto) Not Reportable Lymph # (Auto) Not Reportable [place] # (Auto) Not Reportable Baso # (Auto) Not Reportable Total Counted 100 Seg Neutrophils % 73.0 H Band Neutrophils % 8.0 H Lymphocytes % (Manual) 13.0 L Monocytes % (Manual) 6.0 Neutrophils # (Manual) 65709 H RBC Morphology Normal morphology ABG pH ABG pCO2 ABG pO2 ABG HCO3 ABG Total CO2 ABG O2 Saturation ABG Base Excess VBG pH VBG pCO2 VBG pO2 VBG HCO3 VBG Total CO2 VBG O2 Saturation VBG Base Excess FiO2 Sodium 136 L Potassium 3.4 Chloride 111 H Carbon Dioxide 12 L BUN 6 L Creatinine 0.48 L Estimated GFR > 60.0 BUN/Creatinine Ratio 12.5 Glucose 125 H Hemoglobin A1c 9.7 H Calcium 8.8 TSH Free T4 Nasal Screen MRSA (PCR) Chlamy pneumoniae PCR Adenovirus (PCR) B. pertussis DNA (PCR) B.parapertussis DNA PCR Coronavirus OC43 (PCR) Coronavirus HKU1 (PCR) Coronavirus 229E (PCR) SARS-CoV-2 (PCR) Coronavirus NL63 (PCR) Human Metapneumovir PCR Influenza Type A (PCR) Influenza Type B (PCR) M. pneumoniae (PCR) Parainfluenza 1 (PCR) Parainfluenza 2 (PCR) Parainfluenza 3 (PCR) Parainfluenza 4 (PCR) RSV (PCR) Entero/Rhino (PCR) 07/24/21 07/24/21 07:43 14:00 WBC RBC Hgb Hct MCV MCH MCHC RDW Plt Count Neut % (Auto) Lymph % (Auto) [place] % (Auto) Eos % (Auto) Baso % (Auto) Lymph # (Auto) [place] # (Auto) Baso # (Auto) Total Counted Seg Neutrophils % Band Neutrophils % Lymphocytes % (Manual) Monocytes % (Manual) Neutrophils # (Manual) RBC Morphology ABG pH ABG pCO2 ABG pO2 ABG HCO3 ABG Total CO2 ABG O2 Saturation ABG Base Excess VBG pH 7.31 L VBG pCO2 25.3 L VBG pO2 58 H VBG HCO3 13 L VBG Total CO2 14 L VBG O2 Saturation 88 H VBG Base Excess -13.0 L FiO2 Sodium 137 Potassium 3.2 L Chloride 110 H Carbon Dioxide 19 L BUN 5 L Creatinine 0.40 L Estimated GFR > 60.0 BUN/Creatinine Ratio 12.5 Glucose 203 H Hemoglobin A1c Calcium 8.6 TSH Free T4 Nasal Screen MRSA (PCR) Chlamy pneumoniae PCR Adenovirus (PCR) B. pertussis DNA (PCR) B.parapertussis DNA PCR Coronavirus OC43 (PCR) Coronavirus HKU1 (PCR) Coronavirus 229E (PCR) SARS-CoV-2 (PCR) Coronavirus NL63 (PCR) Human Metapneumovir PCR Influenza Type A (PCR) Influenza Type B (PCR) M. pneumoniae (PCR) Parainfluenza 1 (PCR) Parainfluenza 2 (PCR) Parainfluenza 3 (PCR) Parainfluenza 4 (PCR) RSV (PCR) Entero/Rhino (PCR) [facility] Medical History Type 1 diabetes Social History household members: spouse Smoking Status: Never smoker alcohol intake: never Assessment & Plan Assessment & Plan narrative: ?DKA with Type 1 Diabetes poorly controlled -patient states home dose of insulin 38U daily, and 20U at each meal, but has poorly controlled blood sugar -hold sglt2 inhibitor -exacerbation possibly from adverse effect of trulicity causing nausea and vomiting, and contributing from UTI, chest xray with questionable infiltrates vs low lung volume artifact -send respiratory panel, covid negative -troponin negative -started insulin gtt -got IV fluid boluses in ED -blood sugar improved to <250, start on d51/2NS -appreciate fruit thinner machine operator recommendations -for now q4hr bmp and vbg -npo until gap closes and symptoms improve -patient received bicarb drip, anion gap closed, acidosis resolved. Insulin drip will be discontinued -patient to resume Lantus 30 units daily, and 20 units of the U500 prior to each meal. We do not have that medication and will be brought from home. 2. Thyroiditis -patient says she's not on any medications -check TSH 3. No evidence of urinary tract infection Home when the patient can be transitioned on her usual insulin with blood sugars well controlled. CODE: Full Proxy: Thomas Crump, spouse Time Spent With Patient Critical Care time: I spent a total of [] minutes of critical care time on this patient's care today; this time is exclusive of procedural time.
--- NOTE | 2021-07-24 17:45 | PC.NURSE ---
Addendum entered by Mecca Russo R.N. 07/24/21 19:35: 1925: Pt ate dinner late, Humulin R U-500 ordered with meals. Home med not yet ID'd by Pharmacy, pharmacist not on-site at this time. Home med self-administered by pt. Original Note: SHIFT: Report received, care assumed 1530. Pt resting, oriented x4. at bedside. VSS, denies pain. Tolerating PO intake. At 1535, SQ Lantus administered and IVF held. Insulin gtt turned off at 1625. Pt's ordered insulin is non-formulary; to get it from home prior to pharmacist's departure at 1900.
[2021-07-24] MEDS: INSULIN REGULAR 100 UNIT/ML 3 ML VIAL 20 UNIT SUBCUT (21:50)
[2021-07-25 00:17] VITALS: BP 123/71; PULSE 94; RESP 18; TEMP 37.6; O2SAT 98
[2021-07-25 00:23] LABS: PCO2 VBG 26.3 mmHg (45-50)
[2021-07-25 04:00] VITALS: BP 122/61; PULSE 97; RESP 16; TEMP 37.3; O2SAT 98
[2021-07-25 04:36] LABS: Add Manual Diff / Slide Review NO; Basophils Absolute Auto 100 /uL (0-100); Basophils Percent Auto 0.6 % (0-2); Eosinophils Absolute Auto 300 /uL (0-450); Eosinophils Percent Auto 3.4 % (2-4); Hematocrit 39.3 % (36-46); Hemoglobin 13.3 g/dL (12.0-16.0); Lymphocytes Absolute Auto 2500 /uL (1100-4500); Lymphocytes Percent Auto 28.8 % (25-40); Mean Corpuscular HGB Conc 33.9 % (30-36); Mean Corpuscular Hemoglobin 29.1 PG (26-34); Monocytes Absolute Auto 600 /uL (0-900); Monocytes Percent Auto 7.3 % (3-14); Neutrophils Absolute Auto 5200 /uL (1500-7000); Neutrophils Percent Auto 59.9 % (50-75); Platelet Count 271 X10^3/uL (150-400); Red Blood Cell Count 4.57 X10^6/uL (4.0-5.2); Red Cell Distribution Width 13.5 % (11.6-14.8); White Blood Cell Count 8.6 X10^3/uL (4.5-11.0)
[2021-07-25 04:41] LABS: BUN Creatinine Ratio 26.5 (6-22); Blood Urea Nitrogen 9 mg/dL (7-17); Calcium 8.7 mg/dL (8.4-10.2); Carbon Dioxide 22 mmol/L (22-32); Chloride 106 mmol/L (98-107); Estimated Glomerular Filt Rate > 60.0 mL/min (>60); Glucose 220 mg/dL (70-100); HEMOLYSIS 20 (0-50); Potassium 3.5 mmol/L (3.4-5.1); Sodium 138 mmol/L (137-145)
[2021-07-25 08:00] VITALS: BP 121/72; PULSE 98; RESP 17; TEMP 36.6; O2SAT 98
--- NOTE | 2021-07-25 08:02 | PM.DS.1 ---
History of Present Illness History of Present Illness Date Patient Seen: 07/25/21 Time Patient Seen: 08:02 Chief complaint: Type 1 Diabetes/dry heaving/not keeping food down Narrative: Ms. Crump is a 31W with PMH Type 1 Diabetes, thyroiditis who presents to the hospital with nausea, vomiting, abdominal pain, dehydration. She states she has had a long time of being unable to control her blood sugars. She has had consistenly high a1c, last was 11. She is on insulin, ipraglifozin with still poor control with blood sugars in the 200s. She was then started on trulicity on Saturday and received her first injection. That same day she developed nausea and vomiting. She has been unable to keep down her oral medications. She stopped taking her short acting insulin. She has continued to have nausea and vomiting that has not resolved. She developed abdominal pain after vomiting multiple times. She developed a burning chest sensation. More recently she developed shortness of breath. She presented to the hospital with these symptoms two days ago. She had an anion gap then, and blood sugars in the 150s-200s. She was given IV fluids and was discharged as per note she was feeling improved. However once going home she continued to feel poorly she has had some urinary frequency and discomfort. In the ED, workup was done she was noted to be afebrile, tachycardic in the 120s, respiratory rate 30s. Labs notable for WBC 14.6, hgb 16.5, plts 479. Labs notable for WBC 14.6, Hgb 16.5, plts 479. pH 7.04, pCO2 9.1, hco3 3, pco2 < 5. Na 140, k 5.1, cO2 <5. Glucose 391. Ketones 8.38. UA with 5-10 WBC, 2-10 bacteria. COVID negative. Discharge Providers Provider Date of admission: 07/23/21 15:00 Discharge Date: 07/25/21 Primary care physician: Raj Sands MD Discharge provider: Caitlin Raymundo MD Summary Hospital Course Discharge Diagnosis: 1. Diabetic Ketoacidosis 2. Type 1 diabetes 3.Non Anion Gap Metabolic Acidosis Hospital Course: The patient was admitted to the hospital for diabetic ketoacidosis. She was placed on an insulin drip, D5, and had persistent metabolic acidosis. She ultimately required a bicarbonate drip. The patient's ketoacidosis and anion collect gap closed. She continued to have significant metabolic acidosis which was felt to be non anion gap. She was given the bicarb drip and the metabolic acidosis resolved. The patient was started back on her Lantus/glargine at 38 units daily. She also will continue her 20 units of U 500 prior to her meals. The patient had been initiated on Trulicity for diabetic control and developed nausea and vomiting. She was instructed to discontinue the Trulicity. on her limited radiology technician will call her to arrange an outpatient appointment at discharge. This morning the patient has no nausea and vomiting. She will receive 38 units of Lantus this morning, 20 units of the U500 prior to her breakfast, and 1 she has breakfast tolerates this she will be deemed appropriate for discharge home. Patient has no further complaints. She is deemed appropriate for discharge and will be discharged home. Status at Discharge Cognitive/behavioral status at discharge: oriented Functional status at discharge: independent ambulation Overall status at discharge: patient is back to baseline Exam Vital Signs (past 8 hours): - 07/25/21 00:17 07/25/21 04:00 Temperature 99.6 F 99.1 F Pulse Rate 94 H 97 H Respiratory Rate 18 16 Blood Pressure 123/71 122/61 Pulse Oximetry 98 98 Oxygen Delivery Method Room Air Oxygen Flow Rate 0 Narrative Exam Narrative: Pleasant female in no obvious distress Resp Other: Lungs clear to auscultation Cardio Other: Cardiac exam: Regular rate rhythm normal S1-S2 GI Other: Abdomen soft and nontender Extrem Other: Extremities no edema Objective Labs Result Diagrams: 07/25/21 04:23 07/25/21 04:23 Labs: Laboratory Results - last 24 hr 07/24/21 07/24/21 07/25/21 07:45 14:00 04:23 WBC 8.6 RBC 4.57 Hgb 13.3 Hct 39.3 MCV 86.0 MCH 29.1 MCHC 33.9 RDW 13.5 Plt Count 271 Neut % (Auto) 59.9 D Lymph % (Auto) 28.8 D [place] % (Auto) 7.3 Eos % (Auto) 3.4 Baso % (Auto) 0.6 Neut # (Auto) 5200 Lymph # (Auto) 2500 [place] # (Auto) 600 Eos # (Auto) 300 Baso # (Auto) 100 VBG pH 7.31 L VBG pCO2 26.3 L VBG pO2 58 H VBG HCO3 13 L VBG Total CO2 14 L VBG O2 Saturation 88 H VBG Base Excess -13.0 L Sodium 137 Potassium 3.2 L Chloride 110 H Carbon Dioxide 19 L BUN 5 L Creatinine 0.40 L Estimated GFR > 60.0 BUN/Creatinine Ratio 12.5 Glucose 203 H Calcium 8.6 07/25/21 04:23 WBC RBC Hgb Hct MCV MCH MCHC RDW Plt Count Neut % (Auto) Lymph % (Auto) [place] % (Auto) Eos % (Auto) Baso % (Auto) Neut # (Auto) Lymph # (Auto) [place] # (Auto) Eos # (Auto) Baso # (Auto) VBG pH VBG pCO2 VBG pO2 VBG HCO3 VBG Total CO2 VBG O2 Saturation VBG Base Excess Sodium 138 Potassium 3.5 Chloride 106 Carbon Dioxide 22 BUN 9 Creatinine 0.34 L Estimated GFR > 60.0 BUN/Creatinine Ratio 26.5 H Glucose 220 H Calcium 8.7 PFSH Medical History Type 1 diabetes Social History household members: spouse Smoking Status: Never smoker alcohol intake: never Discharge Assessment & Plan Assessment and Plan Assessment: 1. Diabetic ketoacidosis, present on admission, now resolved 2. Type 1 diabetes 3. Non anion gap metabolic acidosis, now resolved Plan of Treatment: Discharge home on her prior medications, 38 units of Tresiba, and 20 units of U 500 prior to each meal Discontinue Trulicity Follow-up with Dr. aguilar, her limited radiology technician in 1-2 week Discharge Plan Discharge Plan Patient Disposition: Home Discharge orders & Medications Prescriptions: Continued Humulin R U-500 (Conc) Kwikpen 500 unit/mL (3 mL) insulin pen 20 unit SUBCUT QACHS RF: 0 Lantus Solostar U-100 Insulin 100 unit/mL (3 mL) insulin pen 38 unit SUBCUT QAM RF: 0 Follow up/Referrals: Raj Sands MD [Primary Care Provider] - Discharge Health Status Multidrug resistant organism: No MDRO Diet/Activity/Treatments Diet: Carb-consistent/Diabetic Visit Report/Discharge Packet Instructions: Diabetic Ketoacidosis, DI for Diabetic Ketoacidosis Discharge Data Primary Care Provider: Raj Sands
[2021-07-25] MEDS: INSULIN REGULAR 100 UNIT/ML 3 ML VIAL 20 UNIT SUBCUT (08:41)
[2021-07-25] MEDS: INSULIN GLARGINE 100 UNIT/ML 3ML PEN 38 UNIT SUBCUT (08:41)
--- NOTE | 2021-07-25 10:44 | PC.NURSE ---
1015- DC education given to pt. Spouse present for dc teaching. Reviewed dx, medication regimen, sick day plan, when to seek emergency medical treatment. Reviewed importance of f/u with PCP and fleshing machine operator. Pt's fleshing machine operator will call pt with sooner appt. Instructed pt/spouse to create a [employer] account to streamline communication w/ fleshing machine operator and report any questions concerns regarding diabetes mgmt/insulin dosing/med side effects, etc. Pt and spouse both verbalize understanding. Removed PIV and midline with cath tips intact. All belongings are gathered and packed by pt/spouse. Pt's own insulin returned to pt. Pt and spouse requested to leave facility independently without staff escort and were allowed to do so. Pt and spouse left at 1025 for dc home.
--- NOTE | 2021-08-04 13:47 | PC.NURSE ---
late entry 07/23/21 @ 1530 per RN IV fluids continued from ED to admission to the ICU
== END 2021-07-25 10:25 | disposition home or self-care (01) | DRG 639 ==
LOC: ED 14:11 → ICU 20:53 → AC 07-24 14:08 → ICU 07-24 14:08
PROVIDERS: Internal Medicine; Admitting Provider Internal Medicine; Emergency Provider Emergency Medicine; PCP Family Medicine; Referring Provider Emergency Medicine; Visit Provider Internal Medicine
DX: E10.10 Type 1 diabetes mellitus with ketoacidosis without coma (principal); Z79.4 Long term (current) use of insulin; E86.0 Dehydration; R11.2 Nausea with vomiting, unspecified; E06.9 Thyroiditis, unspecified; Z20.822 Contact with and (suspected) exposure to COVID-19
CPT/HCPCS: 36415; 36569; 36592; 36600; 71045; 80048; 80053; 81001; 81003; 81025; 82009; 82805; 82962; 83036; 83605; 84145; 84439; 84443; 84484; 85007; 85025; 87040; 87086; 87633; 87635; 87797; 93005; 94760; 94762; 96361; 96365; 96375; 99284; C9803; C9113; J0696; J1815; J2270; J2405; J2765

== ENCOUNTER 2021-07-25 20:40 | Emergency (ER) | payer OTHER, SELFPAY ==
[2021-07-23 15:03] VITALS: BMI 37.8
[2021-07-25 20:47] VITALS: BP 131/60; PULSE 91; RESP 18; TEMP 36.6; O2SAT 99
--- NOTE | 2021-07-25 21:22 | ED.LOWEXIN ---
HPI - Extremity Injury (Lower) General Chief Complaint: Extremity Injury, Lower Stated Complaint: lt leg numbness, r/o clot Time Seen by Provider: 07/25/21 20:58 Source: patient Mode of arrival: Ambulatory History of Present Illness HPI Narrative: 31-year-old female. Was just recently admitted to the hospital and subsequently discharged this morning for DKA. She is here for tingling along the outside of her left leg. She was concerned about a blood clot. No specific trauma to the area however she states that today she was lying on her left side quite a bit. No chest pain. No shortness of breath. No redness over the area. Related Data Home Medications Medication Instructions Recorded Confirmed insulin glargine 100 unit/mL (3 38 unit SUBCUT QAM 07/23/21 07/23/21 mL) subcutaneous pen (Lantus Solostar U-100 Insulin) insulin regular hum U-500 conc 20 unit SUBCUT QACHS 07/23/21 07/23/21 (Humulin R U-500 (Conc) Insulin Kwikpen) Allergies Allergy/AdvReac Type Severity Reaction Status Date / Time ibuprofen Allergy Severe Hives Verified 07/21/21 19:13 egg Allergy Verified 07/21/21 19:13 Review of Systems Cardiovascular Cardiovascular: Reports as per HPI and Reports system reviewed and no additional complaints, except as documented Respiratory Respiratory: Reports as per HPI and Reports system reviewed and no additional complaints, except as documented Musculoskeletal Musculoskeletal: Reports system reviewed and no additional complaints, except as documented and Reports as per HPI Integumentary/Breasts Skin/Breast: Reports system reviewed and no additional complaints, except as documented and Reports as per HPI Neurologic Neurologic: Reports system reviewed and no additional complaints, except as documented and Reports as per HPI Hematologic/Lymphatic On Anticoagulants: No Allergic/Immunologic Allergic/Immunologic: Reports system reviewed and no additional complaints, except as documented Patient History Medical History Type 1 diabetes Social History household members: spouse Smoking Status: Never smoker alcohol intake: never Smoking Status: Never smoker Substance Use Type: does not use Exam Initial Vital Signs Initial Vital Signs: Vital Signs Temperature 97.9 F 07/25/21 20:47 Pulse Rate 91 H 10/26/21 20:47 Respiratory Rate 18 07/25/21 20:47 Blood Pressure 131/60 07/25/21 20:47 Pulse Oximetry 99 07/25/21 20:47 Const General: cooperative, healthy appearing and comfortable [facility] Head: normal to inspection and normocephalic Resp Effort & Inspection: normal respiratory effort Cardio Rate: regular rate Skin General: no rashes or lesions noted Neuro General: patient alert, patient awake, patient oriented x3 and moves all extremities Extrem General: capillary refill normal Other: Patient reports symptoms along the anterior lateral proximal aspect of left thigh. Her left knee is unremarkable. Left calf is unremarkable. There is no swelling. Psych Appearance: grossly normal and well kempt Scores Wells' Criteria for DVT Active Cancer (Treatment within 6 months): No Bedridden recently >3 days or major surgery within 4 weeks: Yes Calf Swelling >3cm compared to other leg: No Collateral (nonvericose) superficial veins present: No Entire leg swollen: No Localized tenderness along the deep vein system: No Pitting edema, confined to symtomatic leg: No Paralysis, paresis, or recent plaster immobilization of ext: No Previously documented DVT: No Alternative dx to DVT as likely or more likely: Yes Wells' criteria for DVT: -1 Course Orders Ordered: ED Orders 07/25/21 20:51 EKG-12 Lead Stat Vital Signs Vital signs: Vital Signs - 8 hr 07/25/21 20:47 Temperature 97.9 F Pulse Rate 91 H Respiratory Rate 18 Blood Pressure 131/60 Pulse Oximetry 99 MDM - Extremity Injury (Lower) ECG Data Interpretation: Patient is low risk per Wells criteria for DVT. Her symptoms are along the distribution of the lateral femoral cutaneous nerve on the left. She has no signs of pulmonary embolism. No signs of cellulitis. No indication for radiologic studies. Patient discharged home with return precautions. She expressed understanding and agreement. Discharge Plan Departure Patient Disposition: Home Clinical Impression: Neuropathy Activity Restrictions/Additional Instructions: Your presentation today is most consistent with a compression of the nerve in your leg call the lateral femoral cutaneous nerve. This is most likely because you were lying on your left side. It is not a dangerous issue unless you start to develop redness over the area. Most likely will improve on its own over the next several days. Contact your primary doctor for a follow-up. Return to the emergency department for any new or worsening symptoms Prescriptions: No Action Humulin R U-500 (Conc) Kwikpen 500 unit/mL (3 mL) insulin pen 20 unit SUBCUT QACHS RF: 0 Lantus Solostar U-100 Insulin 100 unit/mL (3 mL) insulin pen 38 unit SUBCUT QAM RF: 0 Referrals: Raj Sands MD [Primary Care Provider] -
== END 2021-07-25 21:27 | disposition home or self-care (01) ==
PROVIDERS: Emergency Provider Emergency Medicine; PCP Family Medicine
DX: G62.9 Polyneuropathy, unspecified (principal)
CPT/HCPCS: 93005; 99282; 99283

== ENCOUNTER → 2022-01-20 11:54 | Outpatient (CLI) | payer OTHER, SELFPAY ==
[2021-07-23 15:03] VITALS: BMI 37.8
--- NOTE | 2022-01-20 11:55 | DI.MRI.S_ITS ---
PROCEDURE: MR LUMBAR SPINE WO CON INDICATIONS: Radiculopathy, lumbar region TECHNIQUE: Noncontrast sagittal T1 spin echo and T2 fast echo, sagittal STIR, and T2 fast spin echo through the lumbar spine. In cases with scoliosis, additional coronal T2 fast spin echo may be performed. COMPARISON: None. FINDINGS: Image quality: Excellent. Alignment and Curvature: There is normal bony alignment. Bone Marrow: Marrow is of normal overall signal. No acute vertebral body compression fractures. Spinal Cord: Conus medullaris terminates at the L1 level. Visualized cord demonstrates normal signal and size. Paraspinous Soft Tissues: No paravertebral masses. T12-L1: Normal appearance. L1-L2: Normal appearance. L2-L3: Normal appearance. L3-L4: Normal appearance. L4-L5: Normal appearance. L5-S1: Normal appearance. IMPRESSION: Normal MRI of the lumbar spine. No evidence of central or foraminal stenosis. Approved by: Petr Hurley M.D. on 01/20/2022 at 12:18
== END ==
PROVIDERS: PCP Family Medicine; Referring Provider Physician Assistant Medical; Visit Provider Physician Assistant Medical
DX: M54.16 Radiculopathy, lumbar region (principal)
CPT/HCPCS: 72148